=== PATIENT | female | born 1995 | race Caucasian/White ===

== ENCOUNTER 2020-06-12 14:17 | Emergency (ER) | payer OTHER, SELFPAY ==
--- NOTE | 2020-06-12 14:24 | PC.NURSE ---
Patient never seen by this nurse. Patient arrived at registration and spoke with provider. Patient left express care at that time.
== END 2020-06-12 14:27 | disposition left against medical advice (07) ==
PROVIDERS: Emergency Provider Nurse Practitioner; PCP Emergency Medicine
DX: Z53.21 Procedure and treatment not carried out due to patient leaving prior to being seen by health care provider (principal)
CPT/HCPCS: 99199

== ENCOUNTER 2020-06-12 14:50 | Emergency (ER) | payer OTHER, SELFPAY ==
[2020-06-12] VITALS (8 sets, daily range): BP systolic 110–125; BP diastolic 68–81; PULSE 66–109; RESP 12–22; TEMP 36.5–37; O2SAT 97–100
--- NOTE | 2020-06-12 14:57 | ECG_ITS ---
Measurements Intervals [place] Rate: 89 P: 47 SD: 135 QRS: 42 QRSD: 93 T: 57 QT: 339 QTc: 414 Interpretive Statements SINUS RHYTHM BASELINE ARTIFACT- I, III, AVR, AVL NORMAL ECG Electronically Signed On 06-12-2020 16:51:16 CDT by Yuriy Patricia D.O.
[2020-06-12 15:15] LABS: Basophils Absolute Auto 0.1 K/mm3 (0.0-0.1); Basophils Percent Auto 0.8 % (0.2-1.2); Eosinophils Absolute Auto 0.2 K/mm3 (0-0.3); Eosinophils Percent Auto 2.9 % (0-4.4); Hematocrit 41.4 % (37.0-47.0); Hemoglobin 13.8 g/dL (12.0-15.0); Immature Granulocyte Absolute 0.03 K/mm3 (0.00-0.031); Immature Granulocyte Percent A 0.4 % (0-0.5); Lymphocytes Absolute Auto 2.19 K/mm3 (0.9-3.2); Lymphocytes Percent Auto 27.8 % (18.3-44.2); Mean Corpuscular HGB Conc 33.3 g/dl (32-36); Mean Corpuscular Hemoglobin 31.7 pg (26-34); Mean Platelet Volume 9.8 fl (7.4-10.4); Monocytes Absolute Auto 0.5 K/mm3 (0.1-0.6); Monocytes Percent Auto 5.7 % (2.6-8.5); Neutrophils Absolute Auto 4.9 K/mm3 (1.3-6.7); Neutrophils Percent Auto 62.4 % (45.5-73.1); Platelet Count Result 329 k/mm3 (150-375); Red Blood Count 4.36 M/mm3 (4.2-5.4); Red Cell Distribution Width 12.4 % (11.5-14.5); White Blood Count 7.9 K/mm3 (4.5-10.0)
[2020-06-12 15:22] LABS: Add Urine Microscopic? YES; Appearance Urine Clear (Clear); Bacteria Urine Trace /hpf; Bilirubin Urine Negative (Negative); Blood Urine Negative (Negative); Color Urine Straw (Yellow); Glucose Urine UA Negative (Negative); Ketones Urine Negative (Negative); Leukocyte Esterase Ur 1+ LEU/UL (Negative); Mucus Urine Rare /lpf; Nitrate Urine Positive (Negative); Protein Urine Negative (Negative); Specific Grav Ur 1.009 (1.001-1.035); Squamous Epithelial Cell Urine Moderate /hpf (Few); Urobilinogen Urine Negative mg/dL (<2.0); WBC Urine 21-30 /hpf
[2020-06-12 15:27] LABS: Anion Gap 8 mmol/L (8-16); Blood Urea Nitrogen 9 mg/dL (7-17); Calcium 9.3 mg/dL (8.4-10.2); Carbon Dioxide 23 mmol/L (22-30); Chloride 104 mmol/L (98-107); Estimated CRCL calculation 105 ml/min; Estimated Glomerular Filt Rate > 60; Glucose 95 mg/dL (65-105); Potassium 4.3 mmol/L (3.4-5.0); Sodium 135 mmol/L (137-145)
--- NOTE | 2020-06-12 17:29 | ED.DIZZY ---
HPI - Dizziness General Chief Complaint: Dizziness Stated Complaint: dizziness Time Seen by Provider: 06/12/20 17:12 History of Present Illness HPI Narrative: She reports that she has had UTI symptoms, frequency and dysuria, for a few days. She tried OTC medications without relief. Over the past few days she has become increasingly dizzy. The dizziness is a vertigo like, although it happens most often with standing. Additionally she has had frequent headaches. No tinnitus, otalgia, sinus pressure. Related Data Home Medications Medication Instructions Recorded Confirmed diazepam 5 mg PO BID PRN 10/24/19 10/24/19 venlafaxine 150 mg PO DAILY 10/24/19 10/24/19 Allergies Allergy/AdvReac Type Severity Reaction Status Date / Time No Known Allergies Allergy Verified 06/12/20 18:18 Review of Systems Review of Systems: All systems reviewed & are unremarkable except as noted in HPI and below Constitutional: Constitutional: Denies fever(s) and Denies weakness Eyes: Eyes: Denies change in vision ENT: Reports vertigo and Denies sore throat Cardiovascular: Cardiovascular: Denies chest pain Respiratory: Respiratory: Denies dyspnea Gastrointestinal: Gastrointestinal: Denies nausea and Denies vomiting Genitourinary: Genitourinary: Denies hematuria, Reports nocturia, Reports dysuria and Denies flank pain Musculoskeletal: Musculoskeletal: Denies back pain Neurologic: Denies confusion, Reports dizziness, Reports headache(s) and Denies weakness Psychiatric: Psychiatric: Denies anxiety [facility] Social History Social History (Updated 06/20/20 @ 17:15 by Isak Mohan MD) Smoking status: Never smoker Exam Const: General: healthy appearing, no acute distress and alert Orientation/consciousness: patient oriented x3 HENMT: Head: normal to inspection Ears: TM's normal bilaterally Face and sinus: sinuses nontender Mouth: Yes moist mucous membranes Eyes: Pupils: Equal, round and reactive pupils present EOM: EOMs intact bilaterally Neck: Neck: normal visual inspection and no lymphadenopathy Chest: Chest palpation & inspection: no tenderness Resp: Effort & Inspection: normal respiratory effort Auscultation: clear to auscultation bilaterally, no rales, no rhonchi and no wheezes Cardio: Jugular venous distension: no JVD Rate: regular rate Rhythm: regular rhythm Heart sounds: no murmurs GI: Inspection: non-distended GI Palp: Yes Soft to palpation and No Tenderness to palpation present (GI) Skin: General skin exam: normal color Neuro: General: patient oriented x3, moves all extremities, no focal motor deficits and CN's II-XI intact bilaterally Cranial nerves: Yes Nystagmus present horizontal Speech: normal speech Extrem: General: no edema Psych: Appearance: well kempt Affect: normal affect Course Vital Signs Vital signs: Vital Signs Temperature 36.5 C 06/12/20 14:54 Pulse Rate 90 06/12/20 14:54 Respiratory Rate 20 06/12/20 14:54 Blood Pressure 122/81 06/12/20 14:54 Pulse Oximetry 100 06/12/20 14:54 Temperature 36.7 C 06/12/20 20:17 Pulse Rate 93 06/12/20 22:15 Respiratory Rate 22 H 06/12/20 22:15 Blood Pressure 111/71 06/12/20 22:15 Pulse Oximetry 99 06/12/20 22:15 MDM - Dizziness Differential Diagnosis Differential diagnosis: Likely benign paroxysmal positional vertigo and other (Near syncope, UTI, dehydration, migraine) Medical Records Attestation: I reviewed the patient's medical records. Lab Data Attestation: I reviewed the patient's lab results. Result diagrams: 06/12/20 15:04 06/12/20 15:04 Labs: Lab Results 06/12/20 06/12/20 06/12/20 Range/Units 15:04 15:04 15:04 WBC 7.9 (4.5-10.0) K/mm3 RBC 4.36 (4.2-5.4) M/mm3 Hgb 13.8 (12.0-15.0) g/dL Hct 41.4 (37.0-47.0) % MCV 95.0 (80-100) fl MCH 31.7 (26-34) pg MCHC 33.3 (32-36) g/dl RDW 12.4 (11.5-14.5) % Plt Count 329 (1
[2020-06-12] MEDS: NITROFURANTOIN MONOHYD MACROCR 100 MG CAP PO (17:44)
[2020-06-12] MEDS: MECLIZINE HCL 25 MG TABLET PO (17:45)
--- NOTE | 2020-06-12 18:50 | PC.NURSE ---
Patient provided ice water for PO fluid challenge. Patient tolerated well.
--- NOTE | 2020-06-12 21:15 | PC.NURSE ---
Report given to MARY Santos
== END 2020-06-12 22:24 | disposition home or self-care (01) ==
PROVIDERS: Emergency Provider Emergency Medicine; PCP Emergency Medicine
DX: N39.0 Urinary tract infection, site not specified (principal); R42 Dizziness and giddiness
CPT/HCPCS: 36415; 80048; 81001; 81025; 85025; 87077; 87086; 87088; 87186; 93005; 99284; A9270

== ENCOUNTER 2021-08-26 15:50 | Emergency (ER) | payer OTHER, SELFPAY ==
[2021-08-26 15:51] VITALS: BP 121/69; PULSE 119; RESP 18; TEMP 36.4; O2SAT 100
[2021-08-26] MEDS: HYDROcodone/acetaminophen (*CRX) 5-325 MG TABLET 1 TAB PO (17:18)
--- NOTE | 2021-08-26 18:57 | ED.GENADULT ---
HPI - General Adult General Chief complaint: Wound/Laceration Stated complaint: lac to left hand Time Seen by Provider: 08/26/21 16:11 Source: patient Mode of arrival: ambulatory Limitations: no limitations History of Present Illness HPI narrative: Patient is a 26-year-old female with chief complaint of laceration between the webbing of the first and second digit of her right hand that she sustained while using a knife to open a package. Patient reports that she is not sure as she is up-to-date on her tetanus. She reports pain with range of motion of her thumb but denies loss of range of motion. Patient denies any other injuries. Related Data Home Medications Medication Instructions Recorded Confirmed diazepam 5 mg PO BID PRN 10/24/19 10/24/19 venlafaxine 150 mg PO DAILY 10/24/19 10/24/19 Allergies Allergy/AdvReac Type Severity Reaction Status Date / Time No Known Allergies Allergy Verified 08/26/21 17:28 Review of Systems Review of Systems: CONSTITUTIONAL: Denies fever, chills, or sweats. EYES: Denies visual changes, redness, or discharge. ENT: Denies rhinorrhea, congestion, sore throat, or otalgia. CARDIOVASCULAR: Denies chest pain, palpitations, or edema. RESPIRATORY: Denies cough or dyspnea. GASTROINTESTINAL: Denies abdominal pain, nausea, vomiting, or diarrhea. GENITOURINARY: Denies dysuria or hematuria. SKIN: Reports laceration denies rash or itching. MUSCULOSKELETAL: Denies back pain, joint pain, or myalgia. NEUROLOGIC: Denies headache, numbness, dizziness, or weakness. PSYCHIATRIC: Denies anxiety or depression. [facility] Social History Social History (Updated 06/20/20 @ 17:15 by Isak Mohan MD) Smoking status: Never smoker Exam Narrative: GENERAL: Well-appearing, well-nourished, and in no acute distress. HEAD: Normocephalic, atraumatic. EYES: PERRLA and EOMI. CHEST: No tachypnea no respiratory distress. No wheezes rales or rhonchi EXTREMITIES: Normal range of motion. SKIN: 1 cm laceration noted to the webbing of the space between the first and second digit of the patient's right hand. No active bleeding. Warm, dry, no rash. NEURO: No focal deficits. Alert and oriented x3. PSYCH: Normal mood and affect. Course Vital Signs Vital signs: Vital Signs Temperature 97.6 F 08/26/21 15:51 Pulse Rate 119 H 08/26/21 15:51 Respiratory Rate 18 08/26/21 15:51 Blood Pressure 121/69 08/26/21 15:51 Pulse Oximetry 100 08/26/21 15:51 Temperature 97.6 F 08/26/21 15:51 Pulse Rate 119 H 08/26/21 15:51 Respiratory Rate 18 08/26/21 15:51 Blood Pressure 121/69 08/26/21 15:51 Pulse Oximetry 100 08/26/21 15:51 Procedures Laceration Laceration 1: Site: hand Side (If applicable): right Size (cm): 1 Description: linear Depth: simple, single layer Local Anesthetic: lidocaine 1% Amount of anesthesia used (mL): 0.5 ====== Skin Level ====== Skin layer closed with: nylon Size (cm): 4-0 Number of sutures: 2 Technique: simple, interrupted ====== Subcutaneous Layer ====== ====== Muscle Layer ====== ====== Tendon Layer ====== Dressing: Patient tolerated procedure well. Wound care instructions given. Dressing applied. Patient denies any other questions Medical Decision Making MDM Narrative Medical decision making narrative: Wound repair. Patient given tetanus booster and she is unsure if she is had tetanus booster in the last 5 years. Patient able wound care instructions. Patient instructed to follow-up in approximately 10 days for suture removal. Patient instructed to avoid excessive movement of the area to allow for healing. Patient instructed to wash area with antibacterial soap and apply antibacterial ointment and follow-up sooner if any signs of infection present. 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 Vital Signs Vital Signs: Vital Signs
[2021-08-26 19:05] VITALS: BP 118/64; PULSE 76; RESP 20; O2SAT 98
[2021-08-26] MEDS: TETANUS,DIPHTHERIA,AC PERTUSSIS ADULT (0.5 ML) BOOSTRIX IM (19:33)
== END 2021-08-26 19:36 | disposition home or self-care (01) ==
PROVIDERS: Emergency Provider Emergency Medicine; PCP Emergency Medicine
DX: S61.411A Laceration without foreign body of right hand, initial encounter (principal); Z23 Encounter for immunization; W26.0XXA Contact with knife, initial encounter
CPT/HCPCS: 12001; 90471; 90715; 99283; A9270

== ENCOUNTER 2021-10-01 19:26 | Emergency (ER) | payer OTHER, SELFPAY ==
[2021-10-01 19:34] VITALS: BP 122/75; PULSE 108; RESP 16; TEMP 37.3; O2SAT 100
--- NOTE | 2021-10-01 19:41 | ED.URI ---
HPI - URI/Sore Throat General Chief Complaint: Upper Respiratory Infection Stated Complaint: POS UTI/kamara/nose pain History of Present Illness HPI Narrative: The vaccinated patient, a smoker/nondrinker, presents with several complaints. Patient states she has a 2-day history of urinary urgency and dysuria. Patient states she has had symptoms as early as 2 weeks ago, but felt improved with cranberry juice but has now since returned. No fever, hematuria, vaginal discharge- but she wants testing for STIs. She also mentions in the last 2 weeks she has had sinus headache with nasal congestion, and has pet/triggers at home[3 dogs]. No fever, sore throat, earache; no loss of taste/smell, wheezing, chest pain, S OB, vomiting/diarrhea-she has also had Covid illness in the last year. Related Data Home Medications Medication Instructions Recorded Confirmed venlafaxine 75 mg PO DAILY 10/01/21 10/01/21 Allergies Allergy/AdvReac Type Severity Reaction Status Date / Time No Known Allergies Allergy Verified 08/26/21 17:28 Review of Systems Review of Systems: General/Constitutional: No weight loss,fever Eyes: N0: Redness,discharge Ears/Nose/Throat: No: Epistaxis,ear discharge Respiratory: Denies: Hemoptysis Gastrointestinal: No Vomiting, Bleeding-rectal Skin: No Lumps, eruption Neurologic: No Focal Weakness,Sz Hematologic: Denies: Petechiae/Purpura Psychiatric: No: Suicida ideationl All Other Systems: Reviewed and Negative REPLACED BY [facility] Social History Social History (Updated 06/20/20 @ 17:15 by Isak Mohan MD) Smoking status: Never smoker Comments At time of signature, agree with nursing past medical, surgical, social and family history. There is no relevant family history pertinent to the presenting complaint Exam Narrative: General Appearance: Well appearing, No distress EYE: PERRLA, Conjunctiva clear Ears: External ear normal Nose: Normal nose Mouth/Throat: Normal appearing, Normal lips Neck: Supple Respiratory: Airway patent, No respiratory distress Cardiovascular: RRR Abdomen: Soft, Non-tender, No massess, Musculoskeletal: Full ROM Skin: Warm, Dry Neurological: A&O x3, CN II-X intact Psychiatric: Normal mood, Normal affect Course Vital Signs Vital signs: Vital Signs Temperature 99.1 F 10/01/21 19:34 Pulse Rate 108 H 10/01/21 19:34 Respiratory Rate 16 10/01/21 19:34 Blood Pressure 122/75 10/01/21 19:34 Pulse Oximetry 100 10/01/21 19:34 Temperature 99.1 F 10/01/21 19:34 Pulse Rate 108 H 10/01/21 19:34 Respiratory Rate 16 10/01/21 19:34 Blood Pressure 122/75 10/01/21 19:34 Pulse Oximetry 100 10/01/21 19:34 MDM - URI/Sore Throat Lab Data Labs: Lab Results 10/01/21 Range/Units 19:50 C.trachomatis RNA (TMA) Pending N.gonorrhoeae RNA (TMA) Pending T. vaginalis Amp RNA Pending Urine Glucose Negative Reference Range: Negative Urine Bilirubin Negative Reference Range: Negative Urine Ketone Negative Reference Range: Negative Urine Specific [place] 1.020 Reference Range:1.001-1.035 Urine Blood Negative Reference Range: Negative * * Urine pH 8.5 Reference Range: 5.0-9.0 Urine Protein Negative Reference Range: Negative Urine Urobilinogen 0.2 Reference Range: 0.2-1.0 Urine Nitrate Negative Reference Ra
[2021-10-04 20:11] LABS: SARS-CoV-2 RNA PCR Negative
== END 2021-10-01 20:01 | disposition home or self-care (01) ==
PROVIDERS: Emergency Provider Emergency Medicine; PCP Emergency Medicine
DX: R30.0 Dysuria (principal); R51.9 Headache, unspecified; Z20.822 Contact with and (suspected) exposure to COVID-19; F41.9 Anxiety disorder, unspecified; F32.9 Major depressive disorder, single episode, unspecified
CPT/HCPCS: 81003; 87491; 87591; 87661; 99214; C9803; G0463; U0003; U0005

== ENCOUNTER 2021-12-06 13:59 | Emergency (ER) | payer OTHER, SELFPAY ==
[2021-12-06 14:04] VITALS: BP 108/71; PULSE 98; RESP 16; TEMP 37.1; O2SAT 100
--- NOTE | 2021-12-06 14:07 | ED.GENADULT ---
HPI - General Adult General Chief complaint: Shortness of Breath/Dyspnea Stated complaint: Shortness of breath. Time Seen by Provider: 12/06/21 14:08 Source: patient Mode of arrival: ambulatory Limitations: no limitations History of Present Illness HPI narrative: 26 yo F presents with c/o difficulty breathing for awhile . reports off and on congestion, runny nose, dry cough. recently checked her basement and vents and saw black mold growing . Told her PCP about black mold but he dismissed me and then cancelled me as a pt. Recently saw a business services sales agent and is being evaluated for possible valve issue . has appt with templer head in 2 wks. Thinks she need inhalers and oxygen therapy. pt is speaking in full sentences. flight on ideas. no resp distress. All systems reviewed and negative except as noted above. Related Data Allergies Allergy/AdvReac Type Severity Reaction Status Date / Time No Known Allergies Allergy Verified 12/06/21 14:08 Review of Systems Review of Systems: CONSTITUTIONAL: Denies fever, chills, or sweats. EYES: Denies visual changes, redness, or discharge. ENT: Denies rhinorrhea, congestion, sore throat, or otalgia. CARDIOVASCULAR: Denies chest pain, palpitations, or edema. RESPIRATORY: Reports cough or dyspnea. GASTROINTESTINAL: Denies abdominal pain, nausea, vomiting, or diarrhea. GENITOURINARY: Denies dysuria or hematuria. SKIN: Denies rash or itching. MUSCULOSKELETAL: Denies back pain, joint pain, or myalgia. NEUROLOGIC: Denies headache, numbness, or weakness. PSYCHIATRIC: Denies anxiety or depression. All other systems reviewed are negative, except as documented in HPI. [facility] Social History Social History (Updated 06/20/20 @ 17:15 by Isak Mohan MD) Smoking status: Never smoker Comments At time of signature, agree with nursing past medical, surgical, social and family history. There is no relevant family history pertinent to the presenting complaint. Exam Narrative: GENERAL: This is a well-nourished, well-developed patient, in no apparent distress. HEAD: normocephalic, atraumatic. EYES: PERRL. Sclera clear/white. Vision is grossly intact. EARS: External ears normal, auditory canals clear and without drainage, TMs normal without perforation. Hearing grossly intact. NOSE: External nose normal with no obvious nasal discharge, nares without redness, no rhinorrhea. THROAT: Mucous membranes moist, posterior pharynx clear. NECK: Neck supple, non-tender without lymphadenopathy, masses or thyromegaly. CARDIOVASCULAR: Regular rate and rhythm without murmurs, gallops, or rubs. RESPIRATORY: Clear to auscultation. Breath sounds equal bilaterally. No wheezes, rales, or rhonchi. GASTROINTESTINAL: Abdomen soft, non-tender, nondistended. Bowel sounds are active. No hepato-splenomegaly, or palpable masses. No guarding. SKIN: warm, Dry, intact with no suspicious lesions or rash, good texture and turgor. NEURO: awake, alert, and oriented to person, place and time. There were no obvious focal neurologic abnormalities. EXTREMITIES: No joint tenderness, effusion, or edema noted. No calf tenderness. Negative Homans sign bilaterally. BACK: Nontender without deformity. No CVA tenderness. Course Course Level of Care: Express Care Visit Vital Signs Vital signs: Vital Signs Temperature 37.1 C 12/06/21 14:04 Pulse Rate 98 12/06/21 14:04 Respiratory Rate 16 12/06/21 14:04 Blood Pressure 108/71 12/06/21 14:04 Pulse Oximetry 100 12/06/21 14:04 Temperature 37.1 C 12/06/21 14:08 Pulse Rate 98 12/06/21 14:08 Respiratory Rate 16 12/06/21 14:08 Blood Pressure 108/71 12/06/21 14:08 Pulse Oximetry 100 12/06/21 14:08 Reviewed Medical Decision Making MDM Narrative Medical decision making narrative: will rx albuterol, antihistamines. pt has pulmonology appt in 2 wks. currently her lung sounds are clear. recommend she follow up with a PCP also. Patient is aware of diagnosis, understan
[2021-12-06 14:08] VITALS: BP 108/71; PULSE 98; RESP 16; TEMP 37.1; O2SAT 100
== END 2021-12-06 14:29 | disposition home or self-care (01) ==
PROVIDERS: Emergency Provider Nurse Practitioner Family; PCP Emergency Medicine
DX: R06.00 Dyspnea, unspecified (principal); Z86.16 Personal history of COVID-19
CPT/HCPCS: 99213; G0463

== ENCOUNTER 2022-03-30 11:02 | Emergency (ER) | payer OTHER, SELFPAY ==
[2022-03-30 11:15] VITALS: BP 117/65; PULSE 90; RESP 16; TEMP 36.3; O2SAT 100
--- NOTE | 2022-03-30 11:53 | ED.EAR ---
HPI - Ear Problem General Chief complaint: Ear Stated complaint: EARACHE/DRAINAGE Time Seen by Provider: 03/30/22 11:44 Source: patient Mode of arrival: ambulatory Limitations: no limitations History of Present Illness HPI Narrative: Patient presents today complaining of left ear pain x1 week. Reports drainage of green pus since last night with increased pain. She currently rates pain 8/10 and has been taking ibuprofen without relief. States she cannot hear anything out of the left ear. Denies any additional symptoms to include congestion, rhinorrhea, cough, sore throat. Related Data Home Medications Medication Instructions Recorded Confirmed diazepam 5 mg tablet tablet 03/30/22 lamotrigine 25 mg tablet tablet 03/30/22 Allergies Allergy/AdvReac Type Severity Reaction Status Date / Time No Known Allergies Allergy Verified 12/06/21 14:08 Review of Systems Review of Systems: CONSTITUTIONAL: Denies body aches, fever, chills, or sweats. EYES: Denies visual changes, redness, or discharge. ENT: Denies rhinorrhea, congestion, sore throat. + Left ear pain and drainage. CARDIOVASCULAR: Denies chest pain, palpitations, or edema. RESPIRATORY: Denies cough or dyspnea. GASTROINTESTINAL: Denies abdominal pain, nausea, vomiting, or diarrhea. GENITOURINARY: Denies dysuria or hematuria. SKIN: Denies rash, itching, or wounds. MUSCULOSKELETAL: Denies back pain, joint pain, or myalgia. NEUROLOGIC: Denies headache, numbness, tingling, or weakness. PSYCH: Denies depression or anxiety. [facility] Social History Social History Smoking status: Never smoker Comments At time of signature, I have reviewed and agree with nursing past medical, surgical, social and family history unless otherwise noted. Please see nursing chart for further information. There is no relevant family history pertinent to the presenting complaint Exam Narrative: GENERAL: Well-appearing, well-nourished, and in no acute distress. HEAD: Normocephalic, atraumatic. EYES: EOMI. No redness or drainage. Conjunctivae normal. ENT: Mucous membranes pink and moist. Nares clear. No rhinorrhea. + Right TM normal. Left TM severely erythematous. Possible small rupture. Purulent green discharge in the ear canal. Movement tenderness on left. NECK: Normal AROM. Supple. No lymphadenopathy. CHEST: No respiratory distress. EXTREMITIES: Normal range of motion. No edema. SKIN: Warm, dry, no rash. Capillary refill normal. Normal skin turgor. NEURO: No focal deficits. Alert and oriented x3. Gait steady. PSYCH: Normal affect. No signs of depression or anxiety. Course Course Level of Care: Express Care Visit Vital Signs Vital signs: Vital Signs Temperature 97.4 F L 03/30/22 11:15 Pulse Rate 90 03/30/22 11:15 Respiratory Rate 16 03/30/22 11:15 Blood Pressure 117/65 03/30/22 11:15 Pulse Oximetry 100 03/30/22 11:15 Temperature 97.4 F L 03/30/22 11:15 Pulse Rate 90 03/30/22 11:15 Respiratory Rate 16 03/30/22 11:15 Blood Pressure 117/65 03/30/22 11:15 Pulse Oximetry 100 03/30/22 11:15 Reviewed Medical Decision Making Differential Diagnosis Differential Diagnosis: Otitis media, otitis externa, ruptured TM, serous otitis, eustachian tube dysfunction, cerumen impaction Vital Signs Vital Signs: Vital Signs Temperature 97.4 F L 03/30/22 11:15 Pulse Rate 90 03/30/22 11:15 Respiratory Rate 16 03/30/22 11:15 Blood Pressure 117/65 03/30/22 11:15 Pulse Oximetry 100 03/30/22 11:15 Temperature 97.4 F L 03/30/22 11:15 Pulse Rate 90 03/30/22 11:15 Respiratory Rate 16 03/30/22 11:15 Blood Pressure 117/65 03/30/22 11:15 Pulse Oximetry 100 03/30/22 11:15 Critical Care Time Critical Care Time Critical Care Time: No Discharge Plan Discharge Clinical Impression: Acute suppurative otitis media of left ear with spontaneous rupture of e
== END 2022-03-30 12:19 | disposition home or self-care (01) ==
PROVIDERS: Emergency Provider Nurse Practitioner; PCP Emergency Medicine
DX: H66.012 Acute suppurative otitis media with spontaneous rupture of ear drum, left ear (principal); Z86.16 Personal history of COVID-19
CPT/HCPCS: 99213; G0463

== ENCOUNTER 2022-05-26 16:01 | Emergency (ER) | payer OTHER, SELFPAY ==
[2022-05-26 16:05] VITALS: BP 107/57; PULSE 71; RESP 16; TEMP 36.9; O2SAT 100
[2022-05-26 16:10] VITALS: BP 107/57; PULSE 71; RESP 16; TEMP 36.9; O2SAT 100
--- NOTE | 2022-05-26 16:16 | ED.EAR ---
HPI - Ear Problem General Chief complaint: Ear Stated complaint: Left Ear Pain Time Seen by Provider: 05/26/22 16:17 Source: patient Mode of arrival: ambulatory Limitations: no limitations History of Present Illness HPI Narrative: 27-year-old female presented for complaint of left ear pain for 4 days. Endorses cleaning the ear with hydrogen peroxide and noted black stuff came from the ear as well as yellow/green pus. Also reports fever at home, endorses migraine and tinnitus. She denies dizziness, nausea, vomiting. Patient was treated for otitis media with ruptured TM in March, states symptoms had resolved after treatment. MD Complaint: ear pain Related Data Home Medications Medication Instructions Recorded Confirmed diazepam 5 mg tablet 5 mg PO DAILY 03/30/22 05/26/22 lamotrigine 25 mg tablet 25 mg PO DAILY 03/30/22 05/26/22 Allergies Allergy/AdvReac Type Severity Reaction Status Date / Time No Known Allergies Allergy Verified 12/06/21 14:08 Review of Systems Review of Systems: CONSTITUTIONAL: Denies malaise, chills, or fever. EYES: Denies visual changes, redness, or discharge. ENT: Denies rhinorrhea, congestion, sinus pain, and sore throat. Reports ear pain CARDIOVASCULAR: Denies chest pain, palpitations, or edema. RESPIRATORY: Denies cough or dyspnea. GASTROINTESTINAL: Denies abdominal pain, nausea, vomiting, diarrhea SKIN: Denies rash or itching. MUSCULOSKELETAL: Denies myalgia. NEUROLOGIC: Denies headache. All systems reviewed & are unremarkable except as noted in HPI and below [facility] Social History Social History Smoking status: Never smoker Comments At time of signature, agree with nursing past medical, surgical, social and family history. There is no relevant family history pertinent to the presenting complaint Exam Narrative: GENERAL: Well-appearing HEAD: Normocephalic EYES: conjunctivae clear ENT: Nares clear. Mucous membranes moist. Left ear with purulent green discharge in canal, canal erythematous with mild swelling; TM erythematous possible small rupture obscured by the discharge.?Right TM pearly guerra with dull light reflex; no tragal tenderness. Oropharynx not erythematous without lesions. CHEST: Clear to auscultation, breath sounds equal. HEART: Regular rate and rhythm. No murmur heard. SKIN: Warm, dry, no rash. NEURO: Alert and oriented x3. PSYCH: Normal mood and affect Course Course Emergency Course: Patient is aware of diagnosis, understands and agrees to treatment plan. Anticipatory guidance given. Patient agrees to follow-up as directed and is aware of reasons to seek care at the emergency department. Portions of this record may have been created with voice recognition software Level of Care: Express Care Visit Vital Signs Vital signs: Vital Signs Temperature 98.5 F 05/26/22 16:05 Pulse Rate 71 05/26/22 16:05 Respiratory Rate 16 05/26/22 16:05 Blood Pressure 107/57 L 05/26/22 16:05 Pulse Oximetry 100 05/26/22 16:05 Oxygen Delivery Room Air 05/26/22 16:05 Temperature 98.5 F 05/26/22 16:10 Pulse Rate 71 05/26/22 16:10 Respiratory Rate 16 05/26/22 16:10 Blood Pressure 107/57 L 05/26/22 16:10 Pulse Oximetry 100 05/26/22 16:10 Oxygen Delivery Room Air 05/26/22 16:10 Reviewed Medical Decision Making MDM Narrative Medical decision making narrative: Treat for otitis externa, and AOM, Advised supportive measures, and signs/symptoms to go to the ER. Recommend possible ENT evaluation. Pt is appropriate for outpt treatment and f/u. Differential Diagnosis Differential Diagnosis: Coronavirus, strep pharyngitis, allergic rhinitis, upper respiratory tract infection, sinusitis, rhinosinusitis, nasopharyngitis, viral pharyngitis, otitis media, otitis externa, eustachian tube dysfunction, foreign body, cerumen impaction. Vital Signs Vital Signs: Vital Signs Temperature 98.5 F
== END 2022-05-26 16:30 | disposition home or self-care (01) ==
PROVIDERS: Emergency Provider Nurse Practitioner Family; PCP Emergency Medicine
DX: H60.92 Unspecified otitis externa, left ear (principal); H66.015 Acute suppurative otitis media with spontaneous rupture of ear drum, recurrent, left ear; F41.9 Anxiety disorder, unspecified; F32.A Depression, unspecified; Z86.16 Personal history of COVID-19
CPT/HCPCS: 99213; G0463

== ENCOUNTER 2023-05-09 11:51 | Emergency (ER) | payer OTHER, SELFPAY ==
[2023-05-09 12:12] VITALS: BP 115/76; PULSE 73; RESP 16; TEMP 36.6; O2SAT 99
--- NOTE | 2023-05-09 12:21 | ED.LOWEXIN ---
HPI - Extremity Injury (Lower) General Chief Complaint: Extremity Injury, Lower Stated Complaint: Left toenail injury Source: patient and RN notes reviewed Mode of arrival: ambulatory Limitations: no limitations History of Present Illness HPI Narrative: Patient is a 28 of year old female who presents to the [facility] with complaints of injury to her left 2nd toe. Patient states that [place] She presents with bruising around the toenail of the left 2nd toe. Toenail is intact. 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 She has full range of motion of her left 2nd toe. Cap refill is normal and sensation is intact. Related Data Home Medications Medication Instructions Recorded Confirmed diazepam 5 mg tablet 5 mg PO DAILY 03/30/22 02/06/23 cariprazine 1.5 mg capsule 1.5 mg PO DAILY 07/20/22 02/06/23 (Vraylar) sertraline 50 mg tablet (Zoloft) 50 mg PO DAILY 02/08/23 Allergies Allergy/AdvReac Type Severity Reaction Status Date / Time No Known Allergies Allergy Verified 02/06/23 09:09 Review of Systems Review of Systems: CONSTITUTIONAL: Denies fever, chills, or sweats. EYES: Denies visual changes, redness, or discharge. ENT: Denies otalgia and sore throat CARDIOVASCULAR: Denies chest pain, palpitations, or edema. RESPIRATORY: Denies cough or dyspnea. GASTROINTESTINAL: Denies abdominal pain, nausea, vomiting, or diarrhea. GENITOURINARY: Denies dysuria or hematuria. SKIN: Denies rash or itching. Bruising to distal phalanx of left second toe. MUSCULOSKELETAL: Denies back pain, joint pain, or myalgia. Reports left second toe pain. NEUROLOGIC: Denies headache, numbness, or weakness. Pertinent positives per HPI. 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 There is no relevant family history pertinent to the patient complaint. Exam Narrative: GENERAL: This is a well-nourished, well-developed patient, in no apparent distress. HEAD: normocephalic, atraumatic. EYES: PERRL. Sclera clear/white. Vision is grossly intact. EARS: External ears normal, auditory canals clear and without drainage, TMs normal without perforation. Hearing grossly intact. NOSE: External nose normal with no obvious nasal discharge, nares without redness, no rhinorrhea. THROAT: Mucous membranes moist, posterior pharynx clear. NECK: Neck supple, non-tender without lymphadenopathy, masses or thyromegaly. CARDIOVASCULAR: Regular rate and rhythm without murmurs, gallops, or rubs. RESPIRATORY: Clear to auscultation. Breath sounds equal bilaterally. No wheezes, rales, or rhonchi. GASTROINTESTINAL: Abdomen soft, non-tender, nondistended. Bowel sounds are active. No hepato-splenomegaly, or palpable masses. No guarding. SKIN: warm, intact with no suspicious lesions or rash, good texture and turgor. Slight bruising to distal phalanx of left second toe. NEURO: awake, alert, and oriented to person, place and time. There were no obvious focal neurologic abnormalities. EXTREMITIES: No clubbing, cyanosis, or edema. No effusion or edema noted. Left 2nd toe tenderness with mild bruising. full range of motion of the left 2nd t
== END 2023-05-09 12:23 | disposition home or self-care (01) ==
PROVIDERS: Emergency Provider Nurse Practitioner
DX: S99.922A Unspecified injury of left foot, initial encounter (principal); X58.XXXA Exposure to other specified factors, initial encounter; F17.210 Nicotine dependence, cigarettes, uncomplicated; F17.290 Nicotine dependence, other tobacco product, uncomplicated
CPT/HCPCS: 99212; G0463

== ENCOUNTER 2024-06-21 17:50 | Emergency (ER) | payer SELFPAY ==
[2024-06-21 17:56] VITALS: BP 119/66; PULSE 96; RESP 18; TEMP 36.8; O2SAT 100
--- NOTE | 2024-06-21 18:02 | ED.EAR ---
HPI - Ear Problem General Chief complaint: Ear Stated complaint: Ear Pain Time Seen by Provider: 06/21/24 18:03 Source: patient Mode of arrival: ambulatory Limitations: no limitations History of Present Illness HPI Narrative: 29 y/o female presented for c/o bilateral ear pain for 3-4 days with ear drainage and muffled hearing. Denies tinnitus, dizziness, nasal congestion, fever. MD Complaint: ear pain Related Data Home Medications Medication Instructions Recorded Confirmed diazepam 5 mg tablet 5 mg PO DAILY 03/30/22 05/19/23 cariprazine 1.5 mg capsule 1.5 mg PO DAILY 07/20/22 05/19/23 (Vraylar) sertraline 50 mg tablet (Zoloft) 50 mg PO DAILY 02/08/23 05/19/23 Allergies Allergy/AdvReac Type Severity Reaction Status Date / Time No Known Allergies Allergy Verified 05/19/23 09:54 Review of Systems Review of Systems: CONSTITUTIONAL: Denies malaise, chills, or fever. EYES: Denies visual changes, redness, or discharge. ENT: Denies rhinorrhea, congestion, sinus pain, and sore throat. Reports ear pain CARDIOVASCULAR: Denies chest pain, palpitations, or edema. RESPIRATORY: Denies cough or dyspnea. GASTROINTESTINAL: Denies abdominal pain, nausea, vomiting, diarrhea SKIN: Denies rash or itching. MUSCULOSKELETAL: Denies myalgia. NEUROLOGIC: Denies headache. 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 There is no relevant family history pertinent to the presenting complaint Exam Narrative: GENERAL: Well-appearing EYES: PERRLA, conjunctivae clear ENT: Nares clear. Mucous membranes moist. Bilateral ear canals erythematous, swollen, and tender with purulent drainage c/w OE, bilateral tragal tenderness. TMs unable to visualize due to swelling and drainage bilaterally. Oropharynx not erythematous without lesions. NECK: Supple. No lymphadenopathy CHEST: Clear to auscultation, breath sounds equal. No wheezing, rhonchi, rales, or stridor. No respiratory distress, speaks in full sentences. HEART: Regular rate and rhythm. No murmur heard. SKIN: Warm, dry, no rash. NEURO: Alert and oriented x3. Course Course Emergency Course: Patient is aware of diagnosis, understands and agrees to treatment plan. Anticipatory guidance given. Patient agrees to follow-up as directed and is aware of reasons to seek care at the emergency department. Portions of this record may have been created with voice recognition software Level of Care: Express Care Visit Vital Signs Vital signs: Vital Signs Temperature 98.3 F 06/21/24 17:56 Pulse Rate 96 06/21/24 17:56 Respiratory Rate 18 06/21/24 17:56 Blood Pressure 119/66 06/21/24 17:56 Pulse Oximetry 100 06/21/24 17:56 Oxygen Delivery Room Air 06/21/24 17:56 Temperature 98.3 F 06/21/24 17:56 Pulse Rate 96 06/21/24 17:56 Respiratory Rate 18 06/21/24 17:56 Blood Pressure 119/66 06/21/24 17:56 Pulse Oximetry 100 06/21/24 17:56 Oxygen Delivery Room Air 06/21/24 17:56 Reviewed Medical Decision Making MDM Narrative Medical decision making narrative: Discussed physical exam findings consistent with bilateral otitis externaAdvised supportive measures and signs/s
== END 2024-06-21 18:20 | disposition home or self-care (01) ==
PROVIDERS: Emergency Provider Nurse Practitioner Family
DX: H60.93 Unspecified otitis externa, bilateral (principal); F17.210 Nicotine dependence, cigarettes, uncomplicated; F17.290 Nicotine dependence, other tobacco product, uncomplicated
CPT/HCPCS: 99213; G0463

== ENCOUNTER 2024-08-29 16:17 | Emergency (ER) | payer SELFPAY ==
[2024-08-29 16:54] VITALS: BP 110/63; PULSE 69; RESP 20; TEMP 36.8; O2SAT 100
[2024-08-29 17:16] LABS: EDCOVIDSCREEN Negative (Negative); EDINFLUASCREEN Negative (Negative); EDINFLUBSCREEN Negative (Negative)
--- NOTE | 2024-08-29 17:29 | ED.URI ---
HPI - URI/Sore Throat General Chief Complaint: Upper Respiratory Infection Stated Complaint: Shortness of Breath/Headache/Runny Nose Time Seen by Provider: 08/29/24 17:30 Source: patient, RN notes reviewed and old records reviewed Mode of arrival: ambulatory Limitations: no limitations History of Present Illness HPI Narrative: 29-year-old female to Express Care with complaint of cough, nasal drainage, bilateral itching in ears for 24 hours. Patient denies fever, allergies, pertinent medical history. Patient has not attempted to treat symptoms at home. Patient able tolerate fluids by mouth. Patient resting comfortably in exam room in no acute distress. Respirations even and nonlabored. Related Data Home Medications Medication Instructions Recorded Confirmed diazepam 5 mg tablet 5 mg PO DAILY 03/30/22 05/19/23 cariprazine 1.5 mg capsule 1.5 mg PO DAILY 07/20/22 05/19/23 (Vraylar) sertraline 50 mg tablet (Zoloft) 50 mg PO DAILY 02/08/23 05/19/23 Allergies Allergy/AdvReac Type Severity Reaction Status Date / Time No Known Allergies Allergy Verified 05/19/23 09:54 Review of Systems Review of Systems: All systems reviewed & are unremarkable except as noted in HPI and below Constitutional: Constitutional: Reports no additional constitutional complaints Eyes: Eyes: Reports no additional eye complaints ENT: Reports as per HPI, Reports nasal discharge and Reports other ( Bilateral itching in the ears) Cardiovascular: Cardiovascular: Reports no additional cardiovascular complaints, Denies chest pain and Denies dyspnea Respiratory: Respiratory: Reports no additional respiratory complaints, Reports cough and Denies dyspnea Musculoskeletal: Musculoskeletal: Reports no additional musculoskeletal complaints Neurologic: Reports system reviewed and no additional complaints, except as documented Psychiatric: Psychiatric: Reports no additional psychiatric complaints [facility] Family History Family History Mother Alcoholism Depression Grandparent Cancer Other Cancer Other Cancer Father Hypertension Depression Sibling Depression Sibling Depression Social History Social History Years smoked: 10 Smoking status: Current every day smoker Tobacco type: cigarettes and e-cigarettes/vaping Alcohol intake: current Substance use: never Occupation/Education: occupation 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 There is no relevant family history pertinent to the patient complaint. Exam Const: General: cooperative, healthy appearing, comfortable, no acute distress, alert and well nourished Nutritional Appearance: well nourished Orientation/consciousness: patient oriented x3 Limitations: no limitations HENMT: Head: normal to inspection Ears: external ears normal and TM abnormal erythematous on the right and with fluid behind the TM on the right ( purulent) Face/Nose/Sinus: Normal external nose present, Normal nares present, normal facial exam, No erythema and No edema Face and sinus: normal facial exam, no erythema and no edema Mouth: Yes Normal oral and palatal mucosa present Throat: postnasal drainage Eyes: General: appearance normal, both eyes and all related structures Neck: Neck: normal visual inspection, full ROM and no meningeal signs Lymphatic: no lymphadenopathy noted and no lymphedema noted Chest: Chest palpation & inspection: normal inspection of the chest Resp: Effort & Inspection: normal respiratory effort and able to speak in complete sentences Auscultation: clear to auscultation bilaterally Cardio: Jugular venous distension: no JVD Rate: regular rate Rhythm: regular rhythm Back/Spine/Pelvis: Cervical Spine: cervical ROM normal Skin: General skin exam: normal color, no rashes or lesions noted and turgor normal Neuro: General: patient oriented x3, gait normal, moves all extremities and no meningeal signs Speech: normal speech Gait exam (Neuro): Normal gait present Extrem: General: normal to inspection, full ROM and capillary refill normal Psych: Appearance: grossly normal and well kempt Course Course Emergency Course: Some parts of this dictation were generated by voice recognition software and may contain typographical and/or grammatical inaccuracies. Level of Care: Express Care Visit Vital Signs Vital signs: Vital Signs Temperature 36.8 C 08/29/24 16:54 Pulse Rate 69 08/29/24 16:54 Respiratory Rate 20 08/29/24 16:54 Blood Pressure 110/63 08/29/24 16:54 Pulse Oximetry 100 08/29/24 16:54 Oxygen Delivery Room Air 08/29/24 16:54 Temperature 36.8 C 08/29/24 16:54 Pulse Rate 69 08/29/24 16:54 Respiratory Rate 20 08/29/24 16:54 Blood Pressure 110/63 08/29/24 16:54 Pulse Oximetry 100 08/29/24 16:54 Oxygen Delivery Room Air 08/29/24 16:54 reviewed MDM - URI/Sore Throat MDM Narrative Medical decision making narrative: 29-year-old female to Express Care with complaint of cough, nasal drainage, bilateral itching in ears for 24 hours. Patient denies fever, allergies, pertinent medical history. Patient has not attempted to treat symptoms at home. Patient able tolerate fluids by mouth. Patient resting comfortably in exam room in no acute distress. Respirations even and nonlabored. on exam, right TM erythematous with purulent fluid behind it. Posterior oropharynx with postnasal drainage. Exam findings consistent with right otitis media.Patient negative for COVID and influenza in clinic. Patient is sitting comfortably in exam room nontoxic in appearance. Patient appropriate for outpatient treatment and follow-up. Discharge instructions reviewed with patient, as well as provided in writing per nursing staff. The instructions also include specific and strict return/GO TO THE ER as well as f/u information. All questions have been answered, and the patient deny any further questions with discharge and discharge plan. Some parts of this dictation were generated by voice recognition software and may contain typographical and/or grammatical inaccuracies. Differential Diagnosis Differential diagnosis: Likely upper respiratory infection, croup, otitis media, sinusitis, viral infection, bronchitis, influenza and pharyngitis Lab Data Labs: Lab Results 08/29/24 08/29/24 Range/Units 17:14 17:32 POC Influenza A Ag Negative Negative (Negative) POC Influenza B Ag Negative Negative (Negative) POC SARS CoV-2 Ag Negative Negative (Negative) Discharge Plan Discharge Clinical Impression: Otitis media, right Patient Disposition: Home, Self-Care Condition: Stable Instructions: Ear Infection (ED) Additional Instructions: -Alternate Tylenol and Motrin per package directions for fever or pain. -Antihistamine medication such as Benadryl at night and Zyrtec/Claritin/Delmy during the day can help improve symptoms. -Use Flonase twice a day for 5 days then daily to help reduce the inflammation and dry up your sinuses. -You can also use Sudafed or Mucinex. Be sure to drink plenty of water with these medications at least 8 ounces with every dose and it is important to drink 8 to 10 glasses of water per day. Water is a natural decongestant -Eat and drink things that are easy to swallow, like tea or soup, or popsicles. -Oral rinses such as: Salt water gargles and/or may use topical anesthetic (eg. Chloraseptic spray) or lozenges to relieve dryness or throat pain). -Frequent hand washing or hand honeycomb blanket maker is one of the best ways to prevent spread of infection. -Using a vaporizer or humidifier at night will also help thin secretions and help with coughing up phlegm. -Follow up with primary care provider in 2-3 days if condition is not improving; or seek ER visit if you have trouble breathing, cannot drink enough fluids, have muffled voice, difficulty opening your mouth, or severe swelling. Prescriptions: New amoxicillin 875 mg tablet 875 mg PO Q12H Qty: 20 0RF No Action [id number] 3.5-10,000-1 mg/mL-unit/mL-% drops,suspension 4 drp EACH EAR QID 10 Days Qty: 10 0RF Rx Instructions: Lie with the ear upward for 5 minutes diazepam 5 mg tablet 5 mg PO DAILY Vraylar 1.5 mg capsule 1.5 mg PO DAILY clotrimazole 1 % solution See Rx Instructions topical TID Qty: 30 0RF Rx Instructions: 5 drops, three times per day, for two weeks in the left ear canal sertraline [Zoloft] 50 mg tablet 50 mg PO DAILY Follow-up/Referrals: PHYSICIAN,SALOON KEEPER [Primary Care Provider] - Stand Alone Forms: Work/School Release IP
[2024-08-29 17:34] LABS: EDCOVIDSCREEN Negative (Negative)
[2024-08-29 17:35] LABS: EDINFLUASCREEN Negative (Negative); EDINFLUBSCREEN Negative (Negative)
== END 2024-08-29 17:41 | disposition home or self-care (01) ==
PROVIDERS: Emergency Provider Nurse Practitioner Family
DX: H66.91 Otitis media, unspecified, right ear (principal); F17.210 Nicotine dependence, cigarettes, uncomplicated; Z20.822 Contact with and (suspected) exposure to COVID-19
CPT/HCPCS: 87426; 87804; 99213; G0463

== ENCOUNTER 2025-01-09 17:42 | Emergency (ER) | payer SELFPAY ==
--- OUTSIDE RECORDS SUMMARY | 2025-01-09 17:44 | XMS_ITS | Continuity of Care Document ---
Author Organization [facility] Address [address] [facility] [place] [address] Phone Care Team Providers Care Colleter Name Role Phone Pillo Garcia MD Unavailable Unavailable Allergies, Adverse Reactions, Alerts Substance Reaction Status Criticality No Known Allergies Active No Inform ation Medications Medication Instructions Dosage Effective Dates (start - stop) Status Comments Zoloft 100 mg tablet take 1 tablet by or al route every day 100 MG - Active Vraylar 1.5 mg capsule take 1 capsule by oral route every day 1.5 MG - Active Procedures Procedure Date OFFICE/OUTPATIENT VISIT, EST PREV VISIT, EST, AGE 18-39 OFFICE/OUTPATIENT VISIT, EST OFFICE/OUTPATIENT VISIT, EST OFFICE/OUTPATIENT VISIT, EST OFFICE/OUTPATIENT VISIT, EST PREV VISIT, EST, AGE 18-39 PREV VISIT, EST, AGE 18-39 OFFICE/OUTPATIENT VISIT, EST OFFICE/OUTPATIENT VISIT, EST OFFICE/OUTPATIENT VISIT, EST OFFICE/OUTPATIENT VISIT, EST OFFICE/OUTPATIENT VISIT, EST OFFICE/OUTPATIENT VISIT, EST PREV VISIT, EST, AGE 18-39 OFFICE/OUTPATIENT VISIT, EST OFFICE/OUTPATIENT VISIT, EST PREV VISIT, EST, AGE 18-39 OFFICE/OUTPATIENT VISIT, EST PREV VISIT, [facility], AGE 18-39 Advance Directives Directive Yes / No Effective Date File Name No Information Encounters Encounter Description Practice Location Reason(s) For Visit Diagnoses Date Provider Providers Copied on Encounter [facility], [address], [place], [place], [address], [place] tel:[phone] [facility] No Information 3 Jose Caceres [address], [place], [place], [address] , [place]. tel:[phone] OFFICE/OUTPA TIENT VISIT, EST [facility], [address], [place], [place], [address], [place] tel:[phone] [facility] Medicine sick (chief complaint) scapular pain1 (chief complaint) bipolar1 (chief complaint) Bursitis of right shoulderGeneralized Anxiety DisorderViral infection 2 Jose Caceres [address], [place], [place], [address] , [place]. tel:[phone] PREV VISIT, EST, AGE 18-39 [facility], [address], [place], [place], [address], [place] tel:[phone] [facility] ear pain1 (chief complaint) Encounter for general adult medical examination without abnormal findings 2 Jose Caceres [address], [place], [place], [address] , [place]. tel:[phone] OFFICE/OUTPA TIENT VISIT, EST [facility], [address], [place], [place], [address], [place] tel:[phone] [facility] sob1 (chief complaint) anxiety1 (chief complaint) liver1 (chief complaint) Chest painTachycardiaLive r diseaseConversion disorder 2 Jose Caceres [address], [place], [place], [address] , [place]. tel:[phone] OFFICE/OUTPA TIENT VISIT, [facility], [address], [place], [place], [address], [place] tel:[phone] [facility] abd pain1 (chief complaint) Abdominal painViral infection Sep-2 1 Jose Caceres [address], [place], [place], [address] , [place]. [phone] OFFICE/OUTPA TIENT VISIT, EST [facility], [address] [place], [address], [place] tel:[phone] [facility] hand 1 (chief complaint) leukocytos is1 (chief complaint) LFT (chief complaint) Mononeuropathy of right armLiver diseaseLeukocytosis Family history of endo, nutritional and metabolic diseases February- 1 Jose Caceres [address], [place], [place], [address] , [place]. tel:[phone] OFFICE/OUTPA TIENT VISIT, EST [facility], [address], [place], [place], [address], [place] tel:[phone] [facility] leukocytos is1 (chief complaint) LFT (chief complaint) anxiety1 (chief complaint) ADD (chief complaint) weight gain1 (chief complaint) Liver diseaseLeukocytosis Generalized Anxiety DisorderAttention and concentration deficitFamily history of endo, nutritional and metabolic diseasesAbnormal weight gain Mar- 1 Jose Caceres [address], [place], [place], [address] , [place]. tel:[phone] PREV VISIT, EST, AGE 18-39 [facility], [address] [place], [address], [place] tel:[phone] [facility] physical (chief complaint) Encntr for general adult medical exam w/o abnormal findings Sep-0 0 Jose Caceres [address], [place], [place], [address] , [place]. [phone] PREV VISIT, EST, AGE 18-39 [facility], [address], [place], [place], [address], [place] tel:[phone] [facility] physical (chief complaint) Encntr for general adult medical exam w/o abnormal findings 9 Jose Ferro. [address], [place], [place], [address] , [place]. tel:[phone] Referring Provider: Hansel Oneill [address], [place], [place], [address]. tel:[phone] OFFICE/OUTPA TIENT VISIT, [facility], [address], [place], [place], [address], [place] tel:[phone] [facility] abdominal pain1 (chief complaint) anxiety1 (chief complaint) hair growth1 (chief complaint) skin (chief complaint) Abdominal painGeneralized Anxiety DisorderHirsutismLi danay 8 Jose Ferro. [address], [place], [place], [address] , [place]. tel:[phone] Referring Provider: Hansel Oneill [address], [place], [place], [address]. tel:[phone] OFFICE/OUTPA TIENT VISIT, [facility], [address], [place], [place], [address], [place] tel:[phone] [facility] anxiety1 (chief complaint) libido1 (chief complaint) abd pain1 (chief complaint) cough1 (chief complaint) Pelvic painGERD w/o esophagitisDecrease d libidoGeneralized Anxiety DisorderAcute bronchitis 8 Jose Ferro. [address], [place], [place], [address] , [place]. [phone] Referring Provider: Hansel Oneill [address], [place], [place], [address]. tel:[phone] OFFICE/OUTPA TIENT VISIT, [facility], [address], [place], [place], [address], [place] tel:[phone] [facility] abdominal pain1 (chief complaint) right pelvic pain1 (chief complaint) anxiety1 (chief complaint) Abdominal painPelvic painGeneralized Anxiety DisorderGERD w/o esophagitis 0 8 Jose Caceres [address], [place], [place], [address] , [place]. [phone] Referring Provider: Hansel Oneill [address], [place], [place], [address]. tel:[phone] OFFICE/OUTPA TIENT VISIT, [facility], [address], [place], [place], [address], [place] tel:[phone] [facility] anxiety1 (chief complaint) abdominal pain1 (chief complaint) Abdominal painGeneralized Anxiety Disorder 3 8 Jose Caceres [address], [place], [address] , [place]. [phone] Referring Provider: Hansel Oneill [address], [place], [place], [address]. tel:[phone] OFFICE/OUTPA TIENT VISIT, [facility], [address], [place], [place], [address], [place] tel:[phone] [facility] abd pain1 (chief complaint) pelvic pain1 (chief complaint) anxiety1 (chief complaint) Abdominal painPelvic painGeneralized Anxiety Disorder 8 Jose Caceres [address], [place], [address] , [place]. [phone] Referring Provider: Hansel Oneill [address], [place], [address]. tel:[phone] OFFICE/OUTPA TIENT VISIT, [facility], [address], [place], [place], [address], [place] tel:[phone] [facility] HLP (chief complaint) anxiety1 (chief complaint) ADD (chief complaint) sleep (chief complaint) FatigueHyperlipidem iaGeneralized Anxiety DisorderAttention and concentration deficit 8 Jose Ferro. [address], [place], [place], [address] , [place]. tel:[phone] Referring Provider: Hansel Oneill [address], [place], [address]. tel:[phone] PREV VISIT, EST, AGE 18-39 [facility], [address], [place], [address], [place] tel:[phone] [facility] Medicine PHysical (chief complaint) Body mass index (BMI) 31.0-31.9, adultEncounter for general adult medical exam w abnormal findingsAbnormal weight gainHyperlipidemiaF atigueAttention and concentration deficit Apr-2 6-201 8 Jose Ferro. [address], [place], [address] , [place]. tel:[phone] Referring Provider: Hansel Oneill [address], [place], [address]. tel:[phone] OFFICE/OUTPA TIENT VISIT, EST [facility], [address], [place], [address], [place] [phone] [facility] anxiety1 (chief complaint) Generalized Anxiety DisorderDepression Jan-1 0- 7 Jose Ferro. [address], [place], [place], [address] , [place]. tel:[phone] Referring Provider: Hansel Oneill [address], [place], [place], [address]. tel:[phone] PREV VISIT, EST, AGE 18-39 [facility], [address], [place], [place], [address], [place] [phone] [facility] PHysical (chief complaint) Encounter for general adult medical exam w abnormal findingsDepressionG eneralized Anxiety DisorderLeukorrhea Dec-0 7-201 7 Jose Ferro. [address], [place], [address] , [place]. tel:[phone] Referring Provider: Hansel Oneill [address], [place], [place], [address]. tel:[phone] PREV VISIT, NEW, AGE 18-39 [facility], [address], [place], [place], [address], [place] tel:[phone] [facility] Medicine Physical (chief complaint) Routine Medical ExamRoutine Medical Exam 0201 4 Jose Ferro. [address], [place], [place], [address] , [place]. tel:[phone] Family History Family Member Type Diagnosis Age At Onset Mother Problem (finding) Alive and well Brother Problem (finding) Alive and well Father Problem (finding) Alive and well Mother Problem (finding) Thyroid disorder Payers Payer name Insurance type Covered alliance party ID Authoriza tion(s) No Information Social History Type Description Quantity Date Captured Comments Alcohol Use Details Unknown Caffeine Use Details Unknown Tobacco Use Status Smoking Status No Information Sex Female Chief Complaint And Reason For Visit No Information Plan Of Treatment Date Type Action Status Goal Special diet education compl eted Goal Special diet education compl eted Goal Tobacco cessation counseling completed Goal Special diet education compl eted Goal Tobacco cessation counseling completed Goal Special diet education compl eted Goal Prescribed dietary intake co mpleted Goal Tobacco cessation counseling completed Referral Ordered: Physical Therapy (related to Bursitis of right shoulder) ordered Referral Referred To: [facility] [address] [facility] [address] [place] [address], [phone] Ordered: Referrals: [facility]. Evaluate and treat ordered Referral Referred To: Physical Therapy Ordered: Referrals: Physical Therapy. Evaluate and treat ordered Referral Ordered: Cardiology (related to Chest pain) ordered Referral Ordered: Referrals: Cardiology. Evaluate and treat ordered Referral Ordered: Gastroenterology (related to Abdominal pain) ordered Referral Ordered: Referrals: Gastroenterology. Evaluate and treat ordered Referral Ordered: US EXAM, ABDOM, COMPLETE ordered Referral Ordered: SLEEP STUDY, ATTENDED ordered Referral Ordered: US, PELVIC (NONOBSTETRIC); ordered History Of Present Illness Encounter Date Complaint History Of Prese nt Illness bipolar1 Pt has chronic b ipolar and depression Pt takes zoloft and vraylar now and she is off lamictal. Pt sees psychiatrist Pt denies any suicidal or homicidal thought pt denies any crying spells Pt states that her mood is stable now scapular pain1 Pt c/o persisten t sharp pain around right scapular and just inferior to it for 6 months Pt denies any injury Pt denies any back pain, shoulder pain Pt denies any radiculopathy to right arm ,Pt states that pain is worse with movement of right arm. but she also has pain without moving her arm. Pt denies any rash, or paresthesia. Pt denies any redness or warmth. Pt rico any bug bite. sick Pt c/o acute ons et of sore throat, running nose, mild productive cough, wheezing, sob, sinus congestion, ear pain since 4 days ago. Pt denies any fever Pt denies any calf pain Pt denies any headache Pt tested negative for COVID 3 days ago. Pt denies any GI issue. Pt denies any dysphagia. Pt missed work for several days. Pt states that she is about 80% better now ear pain1 pt c/o recurrent left ear infection x 3 months. Pt c/o left inner ear itching with occasional clear drainage. Pt denies any blood. Pt c/o muffled hearing from ear. Pt has not been swimming Pt has been trying to use ear plug when she takes shower. Pt was treated with oral abx and ear drops from urgent care but has not completely cured. Pt denies right ear symptoms Pt denies any sore throat or sinus symptoms. Pt has anxiety and depression and bipolar and she is on Vraylar and lamictal now by psychiatry and doing ok Pt denies any suicidal or homicidal thought Pt denies any crying spells. Pt no longer has chest pain or palpitation or tachycardia. Pt did see cardiology and she had negative cardiac work up and she told me she was suffering from black mold infection and she moved out of the house and she no longer has any issue above liver1 Pt states that s he never did the abd ultrasound. her LFT was ok. Pt denies any abd pain sob1 Pt c/o acute ons et of overall weakness, chest pain, radiation of pain to left elbow on 10/21/21. Pt feels sob with diaphoresis and then she ease herself on the floor and she started to convulse but she never passed out. Pt is fully conscious throughout the episode. Pt called ambulance and was given ativan and was told she had panic attacks. Pt transfer to [facility] ER and had normal EKG, and she had lab done which was all normal and she was sent home. Pt then went back to ER on 10/23 with same symptoms and she apparently was rude and screaming and she ended up calling 911 from ER and had to be escorted out by security. Apparently her heart rate was 150s and she kept cursing at the medical staff throughout her ER stay. Pt states that there is definitely something wrong with her heart. Pt denies any acute chest pain or sob. Pt denies any headache anxiety1 Pt has chronic a nxiety and depression with history of bipolar and schizophrenia Pt stopped seeing psychiatrist and she stopped effexor and abilify, etc .Pt denies any suicidal or homicidal or self harming thought. Pt states that she is doing ok currently in terms of her mood. abd pain1 Pt c/o diffuse a bd pain including midepigastric area and left side of bellybutton and under left rib cage for 2 weeks but getting worse during the last 2 days. Pt c/o nausea without vomiting or diarrhea or constipation. Pt denies any blood in stool. Pt denies any relationship to food. Pt feels constant sharp an dull pain 03/25. Pt feels feverish sometimes but she has not checked her temp. Pt has mild cough and sob as well .Pt feels mild headache. pt denies any hematemesis. Pt has decreased appetite and she has not been eating very much during last two days. Pt is still drinking liquid and is able to keep it down. Pt feels fatigue, diffuse malaise. Pt denies any sick contact . hand 1 Pt c/o acute ons et of right hand numbness and tingling since last Monday. Pt states that right hand feels slightly weak but she has not been dropping things .Pt did wake up in the middle of the night for several times with right hand numbness and tingling. Pt also notices pain radiating to right elbow. Pt denies any muscle weakness or atrophy or cold extremity and no finger discoloration. Pt rico any elbow pain or any injury Pt denies any neck pain or any radiculopathy symptoms. 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 leukocytosis1 Leukocytosis res olved. Pt denies any recurrent fever or infection LFT Repeat LFT and h epatitis panel normal, Along with ferritin and also ultrasound Pt denies any abd pain or jaundice. leukocytosis1 Pt has leukocyto sis. pt denies any fever or any illness . LFT Pt has borderlin e high LFT Pt denies any abd pain or jaundice Pt rarely drinks alcohol anxiety1 Pt has chronic a nxiety and depression. Pt takes effexor and valium and doing ok Pt sees psychiatrist pt denies any suicidal or homicidal thought Pt denies any crying spells. Pt is off abilify ADD Pt has ADD ,Pt d oing ok with adderall. Pt doing ok weight gain1 Pt has been gain ing weight. Pt is not very active. Pt is not on any diet physical Pt needs annual physical Pt feels dizzy spells Pt feels orthostatic dizziness. Pt feels poor balance Pt feels about to pass out when she stands up sometimes. . Pt has some headache. Pt denies any vision change Pt denies any chest pain or sob. Pt notices above symptoms for one weeks. Pt denies any tinnitus or ear pain. Pt has chronic anxiety and depression. Pt takes effexor and abilify and valium. Pt also takes adderall for ADD ,Pt sees psychiatrist. PT denies any suicidal or homicidal thought. Pt denies any crying spells. physical Pt needs annual physical Pt has recurrent midepigastric pain Pt denies any GERD pt denies any nausea, vomiting, diarrhea ,Pt had benign EGD and colonoscopy Pt had benign CT scan pt continues to have intermittent midepigastric pain randomly Pt had negative giardia and cryptosporidium testing recently at ER Pt never did the ultrasound. Pt also has anxiety and depression Pt takes Effexor 150 mg daily and also klonopin 0.5 mg BID now from psychiatrist. Pt states that klonopin only makes her drowsy. She talked to her psychiatrist who does not want to her to take valium. Pt wants to get valium from me abdominal pain1 Pt has intermitt ent midepigastric pain which is sharp in nature. Pt denies any GERD or nausea, vomiting Pt has right lower pelvic pain. Pt has not done ultrasound yet Pt went to see GI and she did colonoscopy and her EGD is soon per patient. pt denies any blood in stool. Pt denies any worsening pain with food. pt is off zantac. Pt denies any GERD. Pt had colonoscopy recently anxiety1 Pt has chronic a nxiety and depression pt takes effexor and dong ok. pt denies any suicidal or homicidal thought Pt denies any crying spells skin Pt notices a sma ll nontender growth posterior neck area for several months Pt denies any pain hair growth1 Pt notices exces sive hair under chin recently. Pt notices thinning of hair on her scalp. Pt denies any alopecia. Pt does have regular period. anxiety1 Pt has chronic a nxiety and depression Pt states that her anxiety and depression is getting better Pt feels less anxious Pt is able to get out of house now and work. Pt is overall feels 50% improvement of her symptoms. libido1 Pt notices sight ly lower sex drive since on effexor Pt states that it is not so bad Pt states that mainly seems harder to reach climax Pt denies any vaginal bleeding or discharge abd pain1 Pt has intermitt ent midepigastric abdominal pain, not worse with food Pt denies any acute pain pt has gerd and she takes zantac only PRn now Pt has pelvic pain which is chronic Pt does have pain during sex. Pt has not done pelvic ultrasound. cough1 Pt has some dry and mildly productive coughing for one week Pt feels slightly sob with coughing. Pt denies any chest pain Pt denies any sore throat or ear pain Pt has mild clear running nose Pt feels slightly wheezy. Pt denies any acute sob. pt denies any calf ana or any recent travel or bedrest anxiety1 Pt has chronic a nxiety and depression with frequent panic attacks pt states that she has not had any side effect with effexor. Pt states that her anxiety and depression are slightly improving with effexor. Pt takes propranolol PRn for panic attacks symptoms. pt denies any chest pain Pt also takes valium PRn and doing ok. Pt denies any suicidal or homicidal thought right pelvic pain1 Pt c/o right lower pelvic pain for 5 years. Pt has some sharp and dull pain randomly without any trigger factor Pt denies any urinary symptoms pt denies any vaginal bleeding or discharge Pt notices ? worsening pain during her period. Pt never seen rag collector. Pt has not done pelvic ultrasound yet. Pt denies any risk for STD. Pt did have negative GC/chlamydia testing recently abdominal pain1 Pt c/o chronic m idepigastric pain, which is sharp Pt has pain 1-2 per week regardless of activity Pt denies any pain with food. Pt denies any nausea, vomiting, diarrhea Pt has mild GERD 1-2 per week. Pt takes zantac only PRN which helps with GERD but not for the pain. . Pt has not done ultrasound yet pt denies any acute abdominal pain now. anxiety1 Pt has chronic a nxiety and depression. Pt seen multiple psychiatrist and did counseling in the past but none worked Pt has not called [facility] yet. Pt states that she is so anxious that she cannot go to work due to severe anxiety Pt tried effexor and she is still on it now and she feels more anxious with effexor Pt denies any suicidal or homicidal thought. Pt denies any crying spells. Pt is still taking effexor and she wants to give it a month Pt denies any chest pain or headache Pt has not been to work since last Monday. Pt feels slightly spacy with effexor but no other major side effects abdominal pain1 Pt has mild mide pigastric pain. pt denies any GERD Pt denies any nausea, vomiting Pt is taking zantac Pt denies any acute pain Pt has not done ultrasound yet. Pt has not noticed much difference in midepigastric pain anxiety1 pt has severe an xiety chronically Pt also feels slightly depressed. Pt denies any crying spells Pt denies any suicidal or homicidal thought. Pt has sever social anxiety and she has not driven for many years. Pt states that she has anxiety going to stores Pt has poor motivation. Pt state that propranolol dose help with the anxiety symptoms pt states that valium does help pt states that she tried multiple SSRIs and none worked and she could not tolerated. Pt denies any chest pain or palpitation pelvic pain1 Pt c/o chronic r ight lower pelvic pain for at least 5 years. Pt was ordered pelvic ultrasound but she never did it. Pt states the pain is sharp and she feels almost constant sharp pain recently for several months. Pt used to have intermittently. Pt does not think the pain is related to period. Pt denies any vaginal bleeding or vaginal discharge Pt has same sex partner for multiple years and she did not have any risk for STDs per patient pt denies any flank pain. pt denies any UTI symptoms pt denies any pain during sex. Pt denies any or chills. pt denies any appetite loss. abd pain1 Pt has intermitt ent midabdominal pain for about one year. pt has nausea when she has pain pt states that pain is dull. Pt denies any vomiting Pt is not related to food. Pt denies any GERd. Pt notices mild burning midepigastric area. Pt denies any acute pain now. Alcohol and spicy food makes it worse sometimes. pt states that sometimes when she tries to stretch her arm and she feels pain right lower quadrant sleep Pt denies any in somnia pt states that she does not snore Pt denies any breathing issue during sleep Pt feels mild fatigue in the morning. Pt states that she wakes up multiple times during the night for unknown reason. insurance denied sleep study. anxiety1 Pt has chronic a nxiety Pt denies any depression or any suicidal thought. 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 pt states that she sometimes cannot even swallow due to severe panic attacks. Pt has severely anxious and panic attacks at least 10 times per day. Pt states that she cannot talk sometimes due to anxiety. Pt states that she tried multiple SSRIs and she tried buspar and none worked she even seen the psychiatrist in the past without any improvement. Pt feels sweaty palm, unable to speak and talk and unable to function. Pt denies any suicidal or homicidal thought. Pt denies any crying spells. Pt also has palpitation with panic attacks HLP Pt has mild HLP Pt is trying low fat and low carb diet ADD Pt states that a dderall did help her with focus but made her more anxious PHysical pt needs annual physical. Pt states that she has severe social anxiety disorder. pt states that she is afraid of driving or going to store and she has no motivation, Pt states that she wakes up and going to sleep with panic attacks. pt told me zoloft and wellbutrin made her feel worse while on it. Pt also states that buspar did not work either. Pt denies any depression or any suicidal thought. Pt states that she canot focus and she feels scatter brained and she canot complete any tasks at home. Pt states that her mom has thyroid disease. her TSH is ok. Pt denies any joint pain Pt feels fatigue all the time. Pt does not snore and she does have insomnia and she feels restless at night. Pt states that she feels some trouble with breathing at night sometimes. Pt has mild HLP and low D anxiety1 Pt has chronic a nxiety and depression. Pt states that wellbutrin and celexa did not work and actually made her worse .Pt states that they gave her out of body experiences. Pt states that mostly she feels anxious and the depression is probably from anxiety. Pt denies any suicidal or homicidal thought. Pt denies any crying spells. Pt states that she wants to try zoloft again. Pt told me her friend told her about valium. Pt has no motivation. Pt does not have crying spells PHysical Pt needs annual physical. Pt has chronic anxiety and mild depression for sevaral months Pt states that she has poor interests in any activity. Pt states that she feels multiple panic attacks daily. Pt states that it is affecting her social life. Pt states that she has some crying spells intermittently. Pt denies any suicidal or homicidal thought. Pt denies any social stress. Pt used to take zoloft which did help but she stopped it on her own. Pt states that she does not socialize anymore due to her above. Pt c/o vaginal discharge and burning with urination adn mild discomfortalbe with urination. Pt states that it feels similar to BV. Pt denies any any other complaints Instructions Date Instruction Additional Infor mation Special diet education Related t o Body mass index (BMI) 27.0-27.9, adult Perform monthly self breast examinations. Related to Encntr for general adult medical exam w/o abnormal findings Quit smoking. Related to Encnt r for general adult medical exam w/o abnormal findings Increase activity. Related to En cntr for general adult medical exam w/o abnormal findings Special diet education Related t o Body mass index (BMI) 27.0-27.9, adult Stop smoking Related to Abdom inal pain Medications as instructed Relate d to Abdominal pain Special diet education Related t o Body mass index (BMI) 26.0-26.9, adult Quit smoking Related to Pelvi c pain Avoid provocative fo ods: citrus, alcohol, coffee, chocolate, mints. Related to GERD w/o esophagitis Eat smaller meals, n o eating three hours prior to bedtime. Related to GERD w/o esophagitis Elevate head of bed prior to sle ep. Related to GERD w/o esophagitis Weight management Related to Pel shanta pain Stop smoking Related to Abdom inal pain Stop smoking Related to Abdom inal pain Stop smoking Related to Abdom inal pain Special diet education Related t o Body mass index (BMI) 31.0-31.9, adult Increase physical activity Relat ed to Fatigue Weight management Related to Fat igue Weight management Related to Enc ounter for general adult medical exam w abnormal findings Increase physical activity Relat ed to Encounter for general adult medical exam w abnormal findings Prescribed dietary intake Relate d to Body mass index (BMI) 31.0-31.9, adult Prescribed Activity and Exercise Education Related to Dietary Surveillance and Counseling Prescribed Diet Educ ation/Lifestyle Education Regarding Diet Related to Dietary Surveillance and Counseling Prescribed Activity and Exercise Education Related to Dietary Surveillance and Counseling Prescribed Diet Educ ation/Lifestyle Education Regarding Diet Related to Dietary Surveillance and Counseling Assessments Type Assessment Date No Information
--- OUTSIDE RECORDS SUMMARY | 2025-01-09 17:44 | XMS_ITS | Clinical Summary ---
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 Active diazePAM (VALIUM) 5 MG Tablet Take 5 mg by mouth every 8 hours as needed. Active Cariprazine HCl (Vraylar) 4.5 MG Capsule Take by mouth. Active GUANFACINE HCL PO Take 2.5 mg by mouth daily. Active ketorolac (TORADOL) 10 MG Tablet Take 1 Tablet by mouth every 6 hours as needed for Mild or more severe pain. 15 Tablet 06/04/2024 Active Social History Tobacco Use Types Packs/Day Years Used Date Smoking Tobacco: Never Assessed Comments No Sex and Gender Information Value Date Recorded Sex Assigned at Not on file Legal Sex Female 12:48 PM CDT Gender Identity Not on file Sexual Orientation Not on file Last Filed Vital Signs Vital Sign Reading Time Taken Comments Blood Pressure 124/68 06/04/2024 2:55 PM CDT Pulse 62 06/04/2024 2:55 PM CDT Temperature 36.5 C (97.7 F) 06/04/2024 2:55 PM CDT Respiratory Rate 16 06/04/2024 2:55 PM CDT Oxygen Saturation 98% 06/04/2024 2:55 PM CDT Inhaled Oxygen Concentration - - Weight 90.7 kg (200 lb) 06/04/2024 1:00 PM CDT Height 160 cm (5' 3 ) 06/04/2024 1:00 PM CDT Body Mass Index 35.43 06/04/2024 1:00 PM CDT Plan of Treatment Health Maintenance Due Date Last Done Comments Hepatitis C Virus (HCV) Screening 1993 Pap Smear 2014 Cervical Cancer Screening (CCS) 2023 HPV/Cotest 2023 Influenza Immunization (#1) 2024 07/24/2008 SARS-COV-2 Immunization ( season) 2024 07/21/2022, 11/09/2020 Respiratory Syncytial Virus (RSV) Immunization (Adult) (1 - 1-dose 75+ series) 2068 Hepatitis B Immunization Completed 994, 1993, 1993 TdaP Immunization Completed 08/26/2021, 06/30/2006 Meningococcal Immunization (ACWY) Aged Out No longer eligible b ased on patient's age to complete this topic Pneumococcal Immunization Combined Aged Out No longer eligible b ased on patient's age to complete this topic Rotavirus Immunization Aged Out No lo nger eligible based on patient's age to complete this topic Insurance [place]ICAID [place] Care Teams 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
--- OUTSIDE RECORDS SUMMARY | 2025-01-09 17:45 | XMS_ITS ---
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 Name Role Phone Rosa M Kerr Primary Care Provider [phone] Dipesh Duke [phone] REASON FOR VISIT work excuse letter Social History Sex Assigned At : Social History Observation Description Sex Assigned At Female Encounters Encounter Location Date Provider Diagnosis [address] [place] [address] 12/11/2024 Dipesh Duke Plan Of Treatment No Information Progress Notes * Ricki SANCHESOB:1995 (29 yo F)Acc No.[id number]:12/11/2024 Patient: Greyson LANGLEY :1995 A ge:29 Y S ex:Female Address:[address] [place] [address], [id number] * true * Date: Generated for Nba collado/Shirley/eTransmitting on: 0 01/09/2025 05:45 PM CDT
--- OUTSIDE RECORDS SUMMARY | 2025-01-09 17:45 | XMS_ITS | Patient Health Record ---
Author Organization [facility] Address [address] [place] [address] Care Team Providers Care Framing Mechanic Name Role Phone Rosa M Kerr Primary Care Provider [phone] Dipesh Duke Unavailable [phone] Dian Esquivel Unavailable [phone] Allergies Allergen (clinical drug ingredient) Drug/Non Drug Allergy documented on EMR Reaction Allergy Type Onset Date Status No Known Drug Allergy Unknown Drug Allergy Active No Known Food Allergy Unknown Drug Allergy Active Reason For Referral No Information Medications Medication SIG (Take, Route, Frequency, Duration) Notes Start Date End Date Status Multivitamin - 1 tablet Orally Once a day Unknown Ondansetron HCl 4 MG 1 tablet Orally Once a day for 14 days As needed for nausea 02/07/2024 Active Lurasidone HCl 60 MG 1 tablet in the evening with food Orally Once a day for 90 days Bumping up to 60 mg on dose. Client does not have insurance. May need GoodRx coupon or cheapest dose on lurasidone helpful. 09/02/2024 Active Symbicort 80-4.5 MCG/ACT 2 puffs as needed Inhalation Once a day 07/05/2023 Unknown diazePAM 5 MG 1 tablet Orally Three times daily for 30 days As needed for severe anxiety/panic attacks 12/10/2024 Active guanFACINE HCl ER 2 MG 1 tablet at bedtime Orally Once a day for 90 days 01/08/2024 Active Sertraline HCl 100 MG TAKE 1 AND 1/2 TABLETS BY MOUTH EVERY DAY Once a day for 90 days Active Social History Tobacco Use: Social History Observation Description Date Details (start date - stop date) Unknown Sex Assigned At : Social History Observation Description Sex Assigned At Female Dont use, Tobacco Use/Smoking Question Answer Notes Are you a Uses tobacco in other forms Additional Findings: Tobacco User Light cigarett e smoker ((1-9 cigs/day) Problems Problem Type SNOMED Code ICD Code Onset Dates Problem Status W/U Status Risk Notes Problem Borderline personality disorder () Borderline personality disorder (F60.3) Active confirmed Problem Attention deficit hyperactivity disorder (834888154) ADHD (attention deficit hyperactivity disorder) (F90.9) Active confirmed R/O versus comorbid with Bipolar Problem Social anxiety disorder (44324881) Social anxiety disorder (F40.10) Active confirmed Problem Asthma (268808551) Asthma (J45.909) Active confirmed Problem Panic disorder (121050204) Panic disorder (F41.0) Active confirmed Problem [id number] Obesity (BMI 30.0-34.9) (E66.9) Active confirmed Problem Mixed bipolar I disorder (34871907) Bipolar 1 disorder, mixed (F31.60) Active confirmed Problem 61871411 Post traumatic stress disorder (PTSD) (F43.10) Active confirmed Problem Concentration deficit (R41.840) Active confirmed Problem 28090328 Nicotine dependence, uncomplicated, unspecified nicotine product type (F17.200) Active confirmed Problem Bipolar II disorder (81342917) Bipolar II disorder major depressive with melancholic features (F31.81) Inactive differential Encounters Encounter Location Date Provider Diagnosis [address] [address] 01/23/2024 Dipesh Duke Bipolar 1 disorder, mixed F31.60 ; Post traumatic stress disorder (PTSD) F43.10 ; Social anxiety disorder F40.10 ; Panic disorder F41.0 and Borderline personality disorder F60.[address] [address] 02/06/2024 Dipesh Duke Social anxiety disorder F40.10 ; Bipolar 1 disorder, mixed F31.60 ; Panic disorder F41.0 ; ADHD (attention deficit hyperactivity disorder) F90.9 and Post traumatic stress disorder (PTSD) F43.[address] [address] 04/17/2024 Dipesh Duke Bipolar 1 disorder, mixed F31.60 ; Post traumatic stress disorder (PTSD) F43.10 ; Social anxiety disorder F40.10 ; Panic disorder F41.0 and ADHD (attention deficit hyperactivity disorder) F90.[address] [address] 06/10/2024 Dipesh Duke Bipolar 1 disorder, mixed F31.60 ; Borderline personality disorder F60.3 ; Post traumatic stress disorder (PTSD) F43.10 and Social anxiety disorder F40.[address] [address] 09/02/2024 Dipesh Duke Bipolar 1 disorder, mixed F31.60 ; Borderline personality disorder F60.3 ; Post traumatic stress disorder (PTSD) F43.10 ; Social anxiety disorder F40.10 and Panic disorder F41.[address] [address] 12/10/2024 Dipesh Duke Bipolar 1 disorder, mixed F31.60 and Social anxiety disorder F40.[address] [address] 02/07/2024 Rosa M Kerr Medication side effect T88.7XXA [address] [address] 04/09/2024 Dipesh Duke Social anxiety disorder F40.10 ; Bipolar 1 disorder, mixed F31.60 and ADHD (attention deficit hyperactivity disorder) F90.9 [facility] [address], [place] [address] 11/29/2024 Dian Esquivel Social anxiety disorder F40.10 and Bipolar 1 disorder, mixed F31.[address] [address] 12/05/2024 Dipesh Duke Bipolar 1 disorder, mixed F31.[address] [address] 12/11/2024 Dipesh Duke Assessments Encounter Date Diagnosis (ICD Code) Assessment Notes Treatment Notes Treatment Clinical Notes Section Notes 01/23/2024 Bipolar 1 disorder, mixed (ICD-10 - F31.60) Client appears to have comorbid bipolar 1 and BPD after discussion about mood lability and symptoms of BPD. Client's symptoms have remitted some with medication but not fully. Discussed DBT as option going forward and highly encourage client to consider therapy as treatment option. Have recommended in past several times with lack of f/u by client. Client states she is highly considering this. No changes to medication tx plan as appears symptom improvement. 01/23/2024 Post traumatic stress disorder (PTSD) (ICD-10 - F43.10) Client appears to have comorbid bipolar 1 and BPD after discussion about mood lability and symptoms of BPD. Client's symptoms have remitted some with medication but not fully. Discussed DBT as option going forward and highly encourage client to consider therapy as treatment option. Have recommended in past several times with lack of f/u by client. Client states she is highly considering this. No changes to medication tx plan as appears symptom improvement. 02/06/2024 Social anxiety disorder (ICD-10 - F40.10) Client continues to struggle with focus/concentra tion. Anxiety assisted by guanfacine, concentration has not. Is agreeable to trial low dose Strattera. No other treatment plan changes. 02/06/2024 Bipolar 1 disorder, mixed (ICD-10 - F31.60) Client continues to struggle with focus/concentra tion. Anxiety assisted by guanfacine, concentration has not. Is agreeable to trial low dose Strattera. No other treatment plan changes. 02/07/2024 Medication side effect (ICD-10 - T88.7XXA) 04/09/2024 Social anxiety disorder (ICD-10 - F40.10) 04/17/2024 Bipolar 1 disorder, mixed (ICD-10 - F31.60) Client stopped benztropine due to EPS movements subsiding and client being able to taper off medication. Atomoxetine discontinued due to client never starting. Client feels other medications at good levels, that she is fairly stable and does not want any changes. 06/10/2024 Bipolar 1 disorder, mixed (ICD-10 - F31.60) Client has crisis numbers, encouraged to call if needed. States she will. Client given resources for how to set up therapy for if keeps state insurance and for if transitions into private insurance. Client writes information down. No changes to medications at this appointment. Encouraged client to exercise, eat balanced diet, increase social interactions to aide with depressive symptoms as well. 09/02/2024 Bipolar 1 disorder, mixed (ICD-10 - F31.60) Client agreeable to switch to generic Latuda due to loss of insurance. Will see if helpful for depression/anxi ety. Discussed lifestyle changes (exercise, healthy eating, hobbies, pursuing GED) to help with depression. 11/29/2024 Social anxiety disorder (ICD-10 - F40.10) 12/05/2024 Bipolar 1 disorder, mixed (ICD-10 - F31.60) 12/10/2024 Bipolar 1 disorder, mixed (ICD-10 - F31.60) Client overall doing better with change from Vraylar to lurasidone. Some spaced out f/u due to lack of insurance and financial constraints. Client interested in increase in lurasidone due to some rebound symptoms - possibily due to client adjusting to medication. Client agreeable to increase to 60 mg from 40 mg. No other changes to treatment plan. 12/10/2024 Social anxiety disorder (ICD-10 - F40.10) Client overall doing better with change from Vraylar to lurasidone. Some spaced out f/u due to lack of insurance and financial constraints. Client interested in increase in lurasidone due to some rebound symptoms - possibily due to client adjusting to medication. Client agreeable to increase to 60 mg from 40 mg. No other changes to treatment plan. 11/29/2024 Bipolar 1 disorder, mixed (ICD-10 - F31.60) 09/02/2024 Borderline personality disorder (ICD-10 - F60.3) Client agreeable to switch to generic Latuda due to loss of insurance. Will see if helpful for depression/anxi ety. Discussed lifestyle changes (exercise, healthy eating, hobbies, pursuing GED) to help with depression. 04/17/2024 Post traumatic stress disorder (PTSD) (ICD-10 - F43.10) Client stopped benztropine due to EPS movements subsiding and client being able to taper off medication. Atomoxetine discontinued due to client never starting. Client feels other medications at good levels, that she is fairly stable and does not want any changes. 06/10/2024 Borderline personality disorder (ICD-10 - F60.3) Client has crisis numbers, encouraged to call if needed. States she will. Client given resources for how to set up therapy for if keeps state insurance and for if transitions into private insurance. Client writes information down. No changes to medications at this appointment. Encouraged client to exercise, eat balanced diet, increase social interactions to aide with depressive symptoms as well. 04/09/2024 Bipolar 1 disorder, mixed (ICD-10 - F31.60) 02/06/2024 Panic disorder (ICD-10 - F41.0) Client continues to struggle with focus/concentra tion. Anxiety assisted by guanfacine, concentration has not. Is agreeable to trial low dose Strattera. No other treatment plan changes. 01/23/2024 Social anxiety disorder (ICD-10 - F40.10) Client appears to have comorbid bipolar 1 and BPD after discussion about mood lability and symptoms of BPD. Client's symptoms have remitted some with medication but not fully. Discussed DBT as option going forward and highly encourage client to consider therapy as treatment option. Have recommended in past several times with lack of f/u by client. Client states she is highly considering this. No changes to medication tx plan as appears symptom improvement. 01/23/2024 Panic disorder (ICD-10 - F41.0) Client appears to have comorbid bipolar 1 and BPD after discussion about mood lability and symptoms of BPD. Client's symptoms have remitted some with medication but not fully. Discussed DBT as option going forward and highly encourage client to consider therapy as treatment option. Have recommended in past several times with lack of f/u by client. Client states she is highly considering this. No changes to medication tx plan as appears symptom improvement. 02/06/2024 ADHD (attention deficit hyperactivity disorder) (ICD-10 - F90.9) R/O versus comorbid with Bipolar Client continues to struggle with focus/concentra tion. Anxiety assisted by guanfacine, concentration has not. Is agreeable to trial low dose Strattera. No other treatment plan changes. 04/09/2024 ADHD (attention deficit hyperactivity disorder) (ICD-10 - F90.9) R/O versus comorbid with Bipolar 04/17/2024 Social anxiety disorder (ICD-10 - F40.10) Client stopped benztropine due to EPS movements subsiding and client being able to taper off medication. Atomoxetine discontinued due to client never starting. Client feels other medications at good levels, that she is fairly stable and does not want any changes. 06/10/2024 Post traumatic stress disorder (PTSD) (ICD-10 - F43.10) Client has crisis numbers, encouraged to call if needed. States she will. Client given resources for how to set up therapy for if keeps state insurance and for if transitions into private insurance. Client writes information down. No changes to medications at this appointment. Encouraged client to exercise, eat balanced diet, increase social interactions to aide with depressive symptoms as well. 09/02/2024 Post traumatic stress disorder (PTSD) (ICD-10 - F43.10) Client agreeable to switch to generic Latuda due to loss of insurance. Will see if helpful for depression/anxi ety. Discussed lifestyle changes (exercise, healthy eating, hobbies, pursuing GED) to help with depression. 09/02/2024 Social anxiety disorder (ICD-10 - F40.10) Client agreeable to switch to generic Latuda due to loss of insurance. Will see if helpful for depression/anxi ety. Discussed lifestyle changes (exercise, healthy eating, hobbies, pursuing GED) to help with depression. 04/17/2024 Panic disorder (ICD-10 - F41.0) Client stopped benztropine due to EPS movements subsiding and client being able to taper off medication. Atomoxetine discontinued due to client never starting. Client feels other medications at good levels, that she is fairly stable and does not want any changes. 06/10/2024 Social anxiety disorder (ICD-10 - F40.10) Client has crisis numbers, encouraged to call if needed. States she will. Client given resources for how to set up therapy for if keeps state insurance and for if transitions into private insurance. Client writes information down. No changes to medications at this appointment. Encouraged client to exercise, eat balanced diet, increase social interactions to aide with depressive symptoms as well. 02/06/2024 Post traumatic stress disorder (PTSD) (ICD-10 - F43.10) Client continues to struggle with focus/concentra tion. Anxiety assisted by guanfacine, concentration has not. Is agreeable to trial low dose Strattera. No other treatment plan changes. 01/23/2024 Borderline personality disorder (ICD-10 - F60.3) Client appears to have comorbid bipolar 1 and BPD after discussion about mood lability and symptoms of BPD. Client's symptoms have remitted some with medication but not fully. Discussed DBT as option going forward and highly encourage client to consider therapy as treatment option. Have recommended in past several times with lack of f/u by client. Client states she is highly considering this. No changes to medication tx plan as appears symptom improvement. 04/17/2024 ADHD (attention deficit hyperactivity disorder) (ICD-10 - F90.9) R/O versus comorbid with Bipolar Client stopped benztropine due to EPS movements subsiding and client being able to taper off medication. Atomoxetine discontinued due to client never starting. Client feels other medications at good levels, that she is fairly stable and does not want any changes. 09/02/2024 Panic disorder (ICD-10 - F41.0) Client agreeable to switch to generic Latuda due to loss of insurance. Will see if helpful for depression/anxi ety. Discussed lifestyle changes (exercise, healthy eating, hobbies, pursuing GED) to help with depression. [place]23[place]24 [place]. Discussed sleep hygiene and caffeine intake with encouragement to limit electronic devices an hour before bed and to limit caffeine after 3:00pm. Exercise benefits for mood and health discussed. Psychoeducation regarding psychiatric illness provided. Client was educated about risks and benefits of medication, alternatives to medication, off label uses of medication, suicidal ideation with SSRIs, self-administratio n and compliance with medication along with how to safely store medication. Verbal informed consent obtained. Client agrees to return sooner if symptoms worsen or if suicidal or homicidal ideations occur. Client has the phone number to the 24-hour crisis line at [facility]. Questions addressed. Client verbalized understanding of all information and is agreeable to treatment plan. Client appears to have comorbid bipolar 1 and BPD after discussion about mood lability and symptoms of BPD. Client's symptoms have remitted some with medication but not fully. Discussed DBT as option going forward and highly encourage client to consider therapy as treatment option. Have recommended in past several times with lack of f/u by client. Client states she is highly considering this. No changes to medication tx plan as appears symptom improvement. 02/06/2024 [place] Discussed sleep hygiene and caffeine intake with encouragement to limit electronic devices an hour before bed and to limit caffeine after 3:00pm. Exercise benefits for mood and health discussed. Psychoeducation regarding psychiatric illness provided. Client was educated about risks and benefits of medication, alternatives to medication, off label uses of medication, suicidal ideation with SSRIs, self-administratio n and compliance with medication along with how to safely store medication. Verbal informed consent obtained. Client agrees to return sooner if symptoms worsen or if suicidal or homicidal ideations occur. Client has the phone number to the 24-hour crisis line at [facility]. Questions addressed. Client verbalized understanding of all information and is agreeable to treatment plan. Client continues to struggle with focus/concentra tion. Anxiety assisted by guanfacine, concentration has not. Is agreeable to trial low dose Strattera. No other treatment plan changes. 04/17/2024 [place]. Discussed sleep hygiene and caffeine intake with encouragement to limit electronic devices an hour before bed and to limit caffeine after 3:00pm. Exercise benefits for mood and health discussed. Psychoeducation regarding psychiatric illness provided. Client was educated about risks and benefits of medication, alternatives to medication, off label uses of medication, suicidal ideation with SSRIs, self-administratio n and compliance with medication along with how to safely store medication. Verbal informed consent obtained. Client agrees to return sooner if symptoms worsen or if suicidal or homicidal ideations occur. Client has the phone number to the 24-hour crisis line at [facility]. Questions addressed. Client verbalized understanding of all information and is agreeable to treatment plan. Client stopped benztropine due to EPS movements subsiding and client being able to taper off medication. Atomoxetine discontinued due to client never starting. Client feels other medications at good levels, that she is fairly stable and does not want any changes. 06/10/2024 [place]. Discussed sleep hygiene and caffeine intake with encouragement to limit electronic devices an hour before bed and to limit caffeine after 3:00pm. Exercise benefits for mood and health discussed. Psychoeducation regarding psychiatric illness provided. Client was educated about risks and benefits of medication, alternatives to medication, off label uses of medication, suicidal ideation with SSRIs, self-administratio n and compliance with medication along with how to safely store medication. Verbal informed consent obtained. Client agrees to return sooner if symptoms worsen or if suicidal or homicidal ideations occur. Client has the phone number to the 24-hour crisis line at [facility]. Questions addressed. Client verbalized understanding of all information and is agreeable to treatment plan. Client has crisis numbers, encouraged to call if needed. States she will. Client given resources for how to set up therapy for if keeps state insurance and for if transitions into private insurance. Client writes information down. No changes to medications at this appointment. Encouraged client to exercise, eat balanced diet, increase social interactions to aide with depressive symptoms as well. 09/02/2024 [place]. Discussed sleep hygiene and caffeine intake with encouragement to limit electronic devices an hour before bed and to limit caffeine after 3:00pm. Exercise benefits for mood and health discussed. Psychoeducation regarding psychiatric illness provided. Client was educated about risks and benefits of medication, alternatives to medication, off label uses of medication, suicidal ideation with SSRIs, self-administratio n and compliance with medication along with how to safely store medication. Verbal informed consent obtained. Client agrees to return sooner if symptoms worsen or if suicidal or homicidal ideations occur. Client has the phone number to the 24-hour crisis line at [facility]. Questions addressed. Client verbalized understanding of all information and is agreeable to treatment plan. Client agreeable to switch to generic Latuda due to loss of insurance. Will see if helpful for depression/anxi ety. Discussed lifestyle changes (exercise, healthy eating, hobbies, pursuing GED) to help with depression. 12/10/2024 [place]. Discussed sleep hygiene and caffeine intake with encouragement to limit electronic devices an hour before bed and to limit caffeine after 3:00pm. Exercise benefits for mood and health discussed. Psychoeducation regarding psychiatric illness provided. Client was educated about risks and benefits of medication, alternatives to medication, off label uses of medication, suicidal ideation with SSRIs, self-administratio n and compliance with medication along with how to safely store medication. Verbal informed consent obtained. Client agrees to return sooner if symptoms worsen or if suicidal or homicidal ideations occur. Client has the phone number to the 24-hour crisis line at [facility]. Questions addressed. Client verbalized understanding of all information and is agreeable to treatment plan. Client overall doing better with change from Vraylar to lurasidone. Some spaced out f/u due to lack of insurance and financial constraints. Client interested in increase in lurasidone due to some rebound symptoms - possibily due to client adjusting to medication. Client agreeable to increase to 60 mg from 40 mg. No other changes to treatment plan. Plan Of Treatment No Information Insurance Providers Payer Name Payer Address Payer Phone Subscriber Number Group Number Insured Name Patient Relationship to Insured Coverage Start Date Coverage End Date [employer] [address] [place] [phone] [id number] Dane Greyson Self - patient is the insured 7 4 [employer] [address] [place] [phone] [id number] Dane Greyson Self - patient is the insured 1 4 Medical (General) History Medical History History ICD Code Attention deficit hyperactiv ity disorder (ADHD), predominantly inattentive type F90.0 Bipolar II disorder F31.81 Surgical History Surgery Date(Month/Year) Hospitalization History Reason Date(Month/Year)
--- OUTSIDE RECORDS SUMMARY | 2025-01-09 17:45 | XMS_ITS ---
Author Organization [facility] Address [address] [place] [address] Care Team Providers Care Chaplaincy Name Role Phone Rosa M Kerr Primary Care Provider [phone] Dipesh Duke [phone] REASON FOR VISIT refill Medications Medication SIG (Take, Route, Frequency, Duration) Notes Start Date End Date Status Lurasidone HCl 40 MG 1 tablet in the evening with food Orally Once a day for 5 days Stopping Vraylar and replacing with generic Latuda. Client lost insurance, cheapest ghosh for luasidone helpful. 09/02/2024 Active Social History Sex Assigned At : Social History Observation Description Sex Assigned At Female Encounters Encounter Location Date Provider Diagnosis [address] [address] 12/05/2024 Dipesh Duke Bipolar 1 disorder, mixed F31.60 Assessments Encounter Date Diagnosis (ICD Code) Assessment Notes Treatment Notes Treatment Clinical Notes Section Notes 12/05/2024 Bipolar 1 disorder, mixed (ICD-10 - F31.60) Plan Of Treatment Medication Medication Name Sig Start Date Stop Date Notes Lurasidone HCl 40 MG 1 tablet in the evening with food Orally Once a day for 5 days 09/02/2024 Stopping Vraylar and replacing with generic Latuda. Client lost insurance, cheapest ghosh for luasidone helpful. Progress Notes * Ricki SANCHESOB:1995 (29 yo F)Acc No.[id number]:12/05/2024 Patient: Greyson LANGLEY :1995 A ge:29 Y S ex:Female Address:[address] [place] [address], [id number] * Refills Continue Lurasidone HCl Tablet, 40 MG, Orally, 5 Tablet, 1 tablet in the evening with food, Once a day, 5 days * true * Date: Generated for Nba collado/Shirley/Jinitting on: 0 01/09/2025 05:45 PM CDT
--- OUTSIDE RECORDS SUMMARY | 2025-01-09 17:45 | XMS_ITS | CONTINUITY OF CARE DOCUMENT ---
Author Name justin anderson Address Unknown Organization [facility] Address [address] [place] [address] Phone [phone] Care Team Providers Care Regional Project Manager Name Role Phone Oswald ROSS, Kavita Unavailable COURTNEY ROSS, NADIR Unavailable [phone] NADIR VALDEZ MD Unavailable [phone] PROBLEMS Condition Status Date Provider Notes Screening active Kavita Akers MD Substernal chest pain active Kavita Akers MD Shortness of breath (SOB) active Kavita goode MD Tachycardia active Kavita Akers MD Syncope active Kavita Akers MD ENCOUNTERS Date Type Provider Location Encounter Diag nosis - In-person encounter Office Visit Kavita Akers MD [facility] - In-person encounter Office Visit Kavita Akers MD [facility] ScreeningSubsternal chest painShortness of breath (SOB)TachycardiaSyncope VITAL SIGNS Date Observation Value Provider Body Mass Index (Ratio) 26.60 kg/m2 Conchita Dunhammeyer blood pressure, diastolic 67 mm[Hg] Li nkLogic blood pressure, systolic 108 mm[Hg] Pinky kLogic blood pressure, diastolic 67 mm[Hg] Sa ra Conde blood pressure, systolic 108 mm[Hg] Miguel Angel a Conde oxygen saturation, oximetry 99 % Kenyd Conde respiratory rate E&M 21 /min Kendy Si ms pulse rate 89 /min Kendy Conde weight E&M 155 [lb_av] Kendy Conde blood pressure, cuff size regular Sa ra Conde height E&M 64 [in_i] Kendy Etoile Body Mass Index (Ratio) 26.26 kg/m2 Hina Akers MD blood pressure, diastolic 80 mm[Hg] Li nkLogic blood pressure, systolic 110 mm[Hg] Pinky kLog blood pressure, cuff size large Tr aneta Rogers blood pressure, diastolic 80 mm[Hg] Tr aneta Rogers blood pressure, systolic 110 mm[Hg] Nguyen Rogers oxygen saturation, oximetry 98 % Shelbi Rogers respiratory rate E&M 16 /min Shelbi Rogers pulse rate 90 /min Shelbi Rogers weight E&M 153 [lb_av] Shelbi Rogers height E&M 64 [in_i] Shelbi Rogers ALLERGIES No Known Drug Allergies HISTORY OF MEDICATION USE Medication Status Instructions Dates Provider Indications Com ments Cardizem 30 mg tablet completed Take 1 tablet by mouth twice a day - Kavita Akers MD SOCIAL HISTORY Date Observation Value Provider social history E&M Smoking Histo ry: Emeka adames is a former smoker. Kavita Akers MD social history reviewed E&M revi ewed - no changes required Kavita Akers MD social history E&M S moking History: Emeka adames is a former smoker. Kavita Akers MD social history reviewed E&M revi ewed - no changes required Kavita Akers MD cigarette use yes Shelbi parker smoking status Former smoker Shelbi Husseinkiran rds INSURANCE PROVIDERS Payer name Policy type / Coverage type Renea red constitution party ID [place] MEDICAID Medicaid [id number] ADVANCE DIRECTIVES Name Date DISCUSSED - NO DECISION MADE TREATMENT PLAN Date Name Performer [id number],C, N o further episodes of syncope. Nica Teodoro [id number],C, E cho showed normal EF at 60% and no wall motion or valvular abnormalities. Nica Teodoro [id number],C, R esults of PFTs pending. No SOB today Nica Teodoro [id number],C, H olter monitor showed junctional rhythm and narrow complex tachycardia, sinus vs. atrial tachycardia with occasional PVC. Will start her on Cardizem 30 mg once a day. No further episodes of dizziness or syncope. Nica Valerio [id number],C, T he pt denied episodes of passing out but also says as she moves around at home she falls. Kavita Akers MD [id number],C, T he etiology is unclear she was noted to be SOB while talking. We will get a PFT done. Kavita Akers MD [id number],N, H istory of rapid heart rate with dizzness and fainting and possible syncope. Today she is in sinus rhtyhm the EKG does not show any signifcant abnormality we will get a Telecentry monitor to rule out any signifcant arrthymia. Kavita Akers MD [id number],N,W e will get the information from ER. We will get an echo done to assess wall motion and EF. Kavita Akers MD Cardiology: N o further episodes of syncope. Nica Valerio Cardiology: E cho showed normal EF at 60% and no wall motion or valvular abnormalities. Nica Valerio Cardiology: R esults of PFTs pending. No SOB today Nica Valerio Cardiology: H olter monitor showed junctional rhythm and narrow complex tachycardia, sinus vs. atrial tachycardia with occasional PVC. Will start her on Cardizem 30 mg once a day. No further episodes of dizziness or syncope. Nica Valerio Cardiology: T he pt denied episodes of passing out but also says as she moves around at home she falls. Kavita Akers MD Cardiology: T he etiology is unclear she was noted to be SOB while talking. We will get a PFT done. Kavita Akers MD Cardiology: H istory of rapid heart rate with dizzness and fainting and possible syncope. Today she is in sinus rhtyhm the EKG does not show any signifcant abnormality we will get a Telecentry monitor to rule out any signifcant arrthymia. Kavita Akers MD Cardiology:We will g et the information from ER. We will get an echo done to assess wall motion and EF. Kavita Akers MD Date Name Monitor - Telemetry (Mobile Cardiac) DLCO - 61230 FRC - 30984 FVC - 80337 Complete Echo HISTORY OF PROCEDURES Procedure Date Procedure Name Provider Procedure Notes S tatus EKG Kavita Akers MD complet ed Spirometry Kavita Akers MD complet ed FVC / MVV with bronchodilator - 29296 Kavita Akers MD completed FRC - 85423 Kavita Akers MD comple nithin SpO2 w/o 6min walk/titration Kavita Akers MD completed SVC - 48844 Kavita Akers MD comple nithin DLCO - 02276 Kavita Akers MD compl eted EKG Kavita Akers MD complet ed
--- OUTSIDE RECORDS SUMMARY | 2025-01-09 17:46 | XMS_ITS ---
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 Name Role Phone Rosa M Kerr Primary Care Provider [phone] Dipesh Duke [phone] Allergies Allergen (clinical drug ingredient) Drug/Non Drug Allergy documented on EMR Reaction Allergy Type Onset Date Status No Known Drug Allergy Unknown Drug Allergy Active No Known Food Allergy Unknown Drug Allergy Active REASON FOR VISIT 4 week F/U Medications Medication SIG (Take, Route, Frequency, Duration) Notes Start Date End Date Status Multivitamin - 1 tablet Orally Once a day Unknown Symbicort 80-4.5 MCG/ACT 2 puffs as needed [...] Once a day for 90 days Active Ondansetron HCl 4 MG 1 tablet Orally Once a day for 14 days As needed for nausea 02/07/2024 Active Lurasidone HCl 60 MG 1 tablet in the evening with food Orally Once a day for 90 days Bumping up to 60 mg on dose. Client does not have insurance. May need GoodRx coupon or cheapest dose on lurasidone helpful. 09/02/2024 Active Social History Sex Assigned At : Social History Observation Description Sex Assigned At Female Encounters Encounter Location Date Provider Diagnosis [address] [place] [address] 12/10/2024 Dipesh Duke Bipolar 1 disorder, mixed F31.60 and Social anxiety disorder F40.10 Assessments Encounter Date Diagnosis (ICD Code) Assessment Notes Treatment Notes Treatment Clinical Notes Section Notes 12/10/2024 Bipolar 1 disorder, mixed (ICD-10 - [...] No other changes to treatment plan. [place]/10/[place]24 [place] [...] uses of medication, suicidal ideation with SSRIs, self-administration and compliance with medication along with how to safely store medication. Verbal informed consent obtained. Client agrees to return sooner if symptoms worsen or if suicidal or homicidal ideations occur. Client has the phone number to the 24-hour crisis line at [facility]. Questions addressed. Client verbalized understanding of all [...] changes to treatment plan. Plan Of Treatment Medication Medication Name Sig Start Date Stop Date Notes diazePAM 5 MG 1 tablet Orally Three times daily for 30 days 12/10/2024 guanFACINE HCl ER 2 MG 1 tablet at bedti me Orally Once a day for 90 days 01/08/2024 Sertraline HCl 100 MG TAKE 1 AND 1/2 TABLETS BY MOUTH EVERY DAY Once a day for 90 days Lurasidone HCl 60 MG 1 tablet in the evening with food Orally Once a day for 90 days 09/02/2024 Bumping up to 60 mg on dose. Client does not have insurance. May need GoodRx coupon or cheapest dose on lurasidone helpful. Treatment Notes Assessment Notes [place] issues noted. Discussed sleep hygiene and caffeine intake with encouragement to limit electronic devices an hour before bed and to limit caffeine after 3:00pm. Exercise benefits for mood and health discussed. Psychoeducation regarding psychiatric illness provided. Client was educated about risks and benefits of medication, alternatives to medication, off label uses of medication, suicidal ideation with SSRIs, self-administration and compliance with medication along with how to safely store medication. Verbal informed consent obtained. Client agrees to return sooner if symptoms worsen or if suicidal or homicidal ideations occur. Client has the phone number to the 24-hour crisis line at [facility]. Questions addressed. Client verbalized understanding of all information and is agreeable to treatment plan. Next Appt Details Follow Up: 6 Weeks, Reason: Psych F/U - In-Person or Telehealth Progress Notes * Quinn SANCHESLupeOB:1995 (29 yo F)Acc No.[id number]:12/10/2024 Patient: Greyson LANGLEY Provider: Laine Duke DNP, PMHNP-BC :1995 A ge:29 Y S ex:Female Date:12/10/2024 Address:[address] [place], [place] [id number] Pcp:Rosa M Kerr Subjective: * Chief Complaints: * 4 week F/U * HPI: D epression Screening: PHQ-9 L ittle interest or pleasure in doing things S everal days, F eeling down, depressed, or hopeless M ore than half the days, T rouble falling or staying asleep, or sleeping too much S everal days, F eeling tired or having little energy M ore than half the days, P oor appetite or overeating S everal days, F eeling bad about yourself or that you are a failure, or have let yourself or your family down M ore than half the days, T rouble concentrating on things, such as reading the newspaper or watching television M ore than half the days, M oving or speaking so slowly that other people could have noticed; or the opposite, being so fidgety or restless that you have been moving around a lot more than usual S everal days, T houghts that you would be better off or of hurting yourself in some way N ot at all, T otal Score 1 2, I nterpretation M oderate Depression. I ntervention D epression Screening Findings P ositive, F ollow-Up for Depression Patient refused intervention,No Referral necessary, patient involved in behavioral health treatment, S uicide Risk Assessment Performed 0 06/10/2024. S creening: [place] Suicide Severity Rating Scale (LF) D o you want to initiate with S creener form, I nterpretation: L ow Risk, 6 . Suicide Behavior Question: Have you ever done anything,started to do anything, or prepared to end your life? N o, 2. Suicidal Thoughts: Have you actually had any thoughts of killing yourself? N o, 1 . Wish to be : Have you wished you were or wished you could go to sleep and not wake up? N o. C SSRS Interpretation and Follow Up Plan: CSSRS Interpretation and Follow Up Plan C SSRS Screen documented using SF Y es, R isk Disposition from SF M oderate - Follow Up Plan required, F ollow Up Plan M oderate/High: Warm hand off to Behavioral Health Client talked with this provider. Denies plan or intent. Denies crisis intervention. Verified that client has access to crisis phone numbers.. S demarcus: Session conducted telephonically with client's consent. Client pleasant and conversational. HPI: I'm doing a lot better on the Latuda than the Vraylar. But I was without medicine for a week and that wasn't good for me. Greyson Sanches is a 29-year-old female who reports feeling better than before, despite a recent lapse in her medication regimen. She experienced a delay in receiving her Latuda prescription, which led to a period without medication. During this time, she stayed in bed most of the time and missed work on Monday. Greyson has since resumed her medication and feels improved, though she describes feeling out of it as the medication re-enters her system. She is currently working and does not require additional time off. Greyson notes that her mood has been more stable with Latuda, and her coworkers have observed positive changes in her demeanor. However, she still experiences some fluctuations in mood, particularly related to work stress. Her sleep patterns have shifted, with a tendency to oversleep. She states when she started Latuda this was not the case but started more recently. Greyson is considering an increase in her Latuda dosage to address these issues. She also discusses her financial situation, noting that she lost her insurance and is exploring options for coverage. Greyson is interested in potentially adjusting her treatment plan to accommodate her financial constraints, including exploring sliding scale payment options for future appointments. The patient also reported relationship issues with her boyfriend, who spends a lot of time playing video games. She is in a long-term relationship with her boyfriend, but she is not satisfied with their lifestyle, which involves a lot of sitting around, sleeping, and her boyfriend playing video games and smoking marijuana (BF not client). She has expressed a desire to do more activities with her boyfriend, such as going for walks, going to the park, or exercising together. However, her boyfriend is often tired from his job and prefers to play video games. The patient has also expressed difficulty in motivating herself to do things on her own and has mentioned that she doesn't have any friends. She has been taking medication for her mental health issues, but she has not started taking medication for ADHD due to previous negative experiences with an SNRI. States not doing any cannabis. It makes her anxious so has history of not using. Has been taking medications daily. States things at home are okay. Feels BF is supportive . On/off together for 10 years with BF (waxer floor with [employer]). Have discussed DBT and tx options for cluster B traits. Is working on [employer] and continues at same job (14 months now). Hx fall: Spent one day in crisis unit but left AMA before provider could make any adjustments. Client often c/o side effects with any changes to treatment plan and has adherence issues. Client has poor insight into illness and has been very resistant to bipolar dx in past. Client has cycled through countless jobs in the last 2 years, often not keeping one longer than a few weeks to a few months. She is in a relationship with a boyfriend she feels is non-supportive. I have had too much depersonalization to work now. I had a really bad depersonalization moment at [facility] where I couldn't feel my body or talk and ever since then I just haven't been doing great. Nothing really started it or anything. (denies drug use) States that she started having depersonalization at age [age] years old Abuse hx = verbal. No sexual. 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 Client has had many, many jobs over the last 9 months. States things with boyfriend are good and that he is supportive. States he has come around to accepting client needs mental health medications. Prior psychotropic trials: Buspar = body zaps , SSRIs = paradoxical response I felt like I was losing my mind - I tried a bunch of different ones , propranolol = not effective, gabapentin = I felt weird on it, it made me feel high . Elysian = never started due to fear of being on a major medication like that , aripiprazole = didn't like it , Adderall for ADHD symptoms = poor response, venlafaxine = doesn't remember if helpful because was drinking a lot of alcohol, Wellbutrin = it made me feel crazy but states she took with another medication started at same, Vraylar = worked well 4.5 mg but could not continue due to insurance lost. Goals: To keep my current job. Coping strategies: I like to go out in nature. It calms me. Drugs/ETOH use: ETOH: socially, rarely Drugs: Denies Cig/Vape use: LMP: 11/2024 New Medical Issues: Denies Therapy: Was talking with one therapist, who quit [facility]. Assigned another therapist, but fell out of care. Encouraged to set up therapy again. Medications effective: helpful when she takes Medications adherence: Good this month. In past poor - would often forget to take. Sometimes take herself off medications. Medication side effects: denies Sleep: fair Appetite: Normal Anxiety - Fair Depression - fair Irritability: fair Hallucinations/Paranoia: None currently. In past: paranoia at times Suicidal ideation: Denies (hx of in past) Homicidal ideation: Denies Medical concerns or hospitalizations: Denies Any new medications from other providers: Denies. * ROS: P sych ROS: Constitutional D enies, A ll systems negative unless indicated otherwise.,All systems negative unless indicated otherwise.. * PSYCH ROS2: Admits E levated mood symptoms, s ome irritability.?Admits m ood swings. T houghts of self harm D enies. D enies H omicidal thoughts. H yperactivity D enies. I nattention A dmits. B ehavior concerns D enies. D isruptive behavior D enies. O bsessive behavior A dmits. C ompulsive behavior A dmits. P aranoia D enies. D ifficulty concentrating A dmits. A dmits?Anxiety, t hat is moderate . D enies A uditory/visual hallucinations. A dmits Delusions. A dmits D epressed mood, w hich is moderate. D enies D ifficulty sleeping. D enies E ating disorder. D enies L oss of appetite. A dmits S tressors, f inancial , work. D enies S ubstance abuse. D enies S uicidal thoughts. * Medical History: * Surgical History: D enekta Past Surgical History * Hospitalization/Major Diagno stic Procedure: D enekta Past Hospitalization * Family History: F ather: alive, Hypertension. M other: alive, Bipolar. 1 brother(s) , 2 sister(s) - healthy. . * Social History: P rimary Social History: L iving Arrangement L iving Arrangement: I ndependent Living, I s this a supportive environment? Y es. A lcohol Use A lcohol Use Frequency: M onthly or less. I llicit Substance Usage I llicit Substance Usage: N o. E mployment Status E mployment Status: U nemployed. T obacco Use - do not use T obacco Use: Vapes daily. * Medications: T akingOndansetron HCl 4 MG Tablet 1 tablet Orally Once a day As needed for nauseaSertraline HCl 100 MG Tablet TAKE 1 AND 1/2 TABLETS BY MOUTH EVERY DAY Once a day , Notes to Pharmacist: Stopping Vraylar and replacing with generic Latuda. Client lost insurance, cheapest ghosh for luasidone helpful.guanFACINE HCl ER 2 MG Tablet Extended Release 24 Hour 1 tablet at bedtime Orally Once a day , Notes to Pharmacist: Stopping Vraylar and replacing with generic Latuda. Client lost insurance, cheapest ghosh for luasidone helpful.diazePAM 5 MG Tablet 1 tablet Orally Three times daily As needed for severe anxiety/panic attacks, Notes to Pharmacist: Stopping Vraylar and replacing with generic Latuda. Client lost insurance, cheapest ghosh for luasidone helpful.Lurasidone HCl 40 MG Tablet 1 tablet in the evening with food Orally Once a day , Notes to Pharmacist: Stopping Vraylar and replacing with generic Latuda. Client lost insurance, cheapest ghosh for luasidone helpful.Taking Ondansetron HCl 4 MG Tablet 1 tablet Orally Once a day As needed for nauseaTaking Sertraline HCl 100 MG Tablet TAKE 1 AND 1/2 TABLETS BY MOUTH EVERY DAY Once a day , Notes to Pharmacist: Stopping Vraylar and replacing with generic Latuda. Client lost insurance, cheapest ghosh for luasidone helpful.Taking guanFACINE HCl ER 2 MG Tablet Extended Release 24 Hour 1 tablet at bedtime Orally Once a day , Notes to Pharmacist: Stopping Vraylar and replacing with generic Latuda. Client lost insurance, cheapest ghosh for luasidone helpful.Taking diazePAM 5 MG Tablet 1 tablet Orally Three times daily As needed for severe anxiety/panic attacks, Notes to Pharmacist: Stopping Vraylar and replacing with generic Latuda. Client lost insurance, cheapest ghosh for luasidone helpful.Taking Lurasidone HCl 40 MG Tablet 1 tablet in the evening with food Orally Once a day , Notes to Pharmacist: Stopping Vraylar and replacing with generic Latuda. Client lost insurance, cheapest ghosh for luasidone helpful.UnknownSymbicort 80- 4.5 MCG/ACT Aerosol 2 puffs as needed Inhalation Once a day Multivitamin - Tablet 1 tablet Orally Once a day Unknown Symbicort 80-4.5 MCG/ACT Aerosol 2 puffs as needed Inhalation Once a day Unknown Multivitamin - Tablet 1 tablet Orally Once a day * Allergies: N o Known Drug AllergyNo Known Food Allergyno[Allergies Verified] Objective: * Vitals: * Examination: P sychiatry: APPEARANCE: U TA due to telephone session. ATTENTION: good. ORIENTATION: yes. ATTITUDE: c ooperative, pleasant , overwhelmed , negative.? AFFECT: a ppropriate, full range. MOOD: e uthymic to dysthymic. SPEECH: clear, normal/R/V/R. PSYCHOMOTOR ACTIVITY: JONNY. ABNORMAL BODY MOVEMENTS: none per patient's report. CURRENT HOMICIDALITY: none. CURRENT SUICIDALITY: y es. THOUGHT PROCESS: intact. THOUGHT CONTENT: u nremarkable. PERCEPTUAL DISORDERS: + paranoia at times, depersonalization. INSIGHT: f air. JUDGEMENT: f air. Assessment: * Assessment: 1. B ipolar 1 disorder, mixed - F31.60 (Primary) 2 . S ocial anxiety disorder - F40.10 Client overall doing better with change from Vraylar to lurasidone. Some spaced out f/u due to lack of insurance and financial constraints. Client interested in increase in lurasidone due to some rebound symptoms - possibily due to client adjusting to medication. Client agreeable to increase to 60 mg from 40 mg. No other changes to treatment plan. Plan: * Treatment: 2. S ocial anxiety disorder Refill guanFACINE HCl ER Tablet Extended Release 24 Hour, 2 MG, 1 tablet at bedtime, Orally, Once a day, 90 days, 90 Tablet, Refills 0; R efill Sertraline HCl Tablet, 100 MG, TAKE 1 AND 1/2 TABLETS BY MOUTH EVERY DAY, Once a day, 90 days, 135, Refills 0; R efill diazePAM Tablet, 5 MG, 1 tablet, Orally, Three times daily As needed for severe anxiety/panic attacks, 30 days, 90, Refills 2.? 3. O thers Notes[place]. Discussed sleep hygiene and caffeine intake with encouragement to limit electronic devices an hour before bed and to limit caffeine after 3:00pm. Exercise benefits for mood and health discussed. Psychoeducation regarding psychiatric illness provided. Client was educated about risks and benefits of medication, alternatives to medication, off label uses of medication, suicidal ideation with SSRIs, self-administration and compliance with medication along with how to safely store medication. Verbal informed consent obtained. Client agrees to return sooner if symptoms worsen or if suicidal or homicidal ideations occur. Client has the phone number to the 24-hour crisis line at [facility]. Questions addressed. Client verbalized understanding of all information and is agreeable to treatment plan. * Procedure Codes: * Follow Up: 6 Weeks (Reason: Psych F/U - In-Person or Telehealth) * * CEMENTER Sign off status: Completed true * Provider: Laine Duke DNP, PMHNP-BC Date: 0 12/10/2024 Generated for Nba collado/Shirley/Regina on: 0 01/09/2025 05:44 PM CDT History and Physical Notes * HPI (History of Present Illness) Category Sub-Category Detail Notes Category Not es Depression Screening PHQ-9 Little inte rest or pleasure in doing things: Several days Feeling down, depressed, or hopeless: Mo re than half the days Trouble falling or staying asleep, or sl eeping too much: Several days Feeling tired or having little energy: M ore than half the days Poor appetite or overeating: Several day s Feeling bad about yourself o r that you are a failure, or have let yourself or your family down: More than half the days Trouble concentrating on thi ngs, such as reading the newspaper or watching television: More than half the days Moving or speaking so slowly that other people could have noticed; or the opposite, being so fidgety or restless that you have been moving around a lot more than usual: Several days Thoughts that you would be b ava off or of hurting yourself in some way: Not at all Total Score: 12 Interpretation: Moderate Depression Intervention Depression Screening Findings: P ositive Follow-Up for Depression: Rogelio davalos refused intervention,No Referral necessary, patient involved in behavioral health treatment Suicide Risk Assessment Performed: 06/10 Screening [place] Suicide Sev erity Rating Scale (LF) Do you want to initiate with: Screener form Interpretation:: Low Risk 6. Suicide Behavior Question: Have you ever done anything,started to do anything, or prepared to end your life?: No 2. Suicidal Thoughts: Have you actually had any thoughts of killing yourself?: No 1. Wish to be : Have you wished you were or wished you could go to sleep and not wake up?: No CSSRS Interpretation and Follow Up Plan CSSRS Interpretation and Follow Up Plan CSSRS Screen documented using SF: Yes Risk Disposition from SF: Mo derate - Follow Up Plan required Follow Up Plan: Moderate/Hig h: Warm hand off to Behavioral Health Client talked with this provider. Denies plan or intent. Denies crisis intervention. Verified that client has access to crisis phone numbers. Examination Category Sub-Category Detail Notes Category Not es Psychiatry APPEARANCE: JONNY due to telephone session ATTITUDE: cooperative, pleasan t , overwhelmed , negative PSYCHOMOTOR ACTIVITY: JONNY ABNORMAL BODY MOVEMENTS: none per patien t's report ATTENTION: good ORIENTATION: yes AFFECT: appropriate, full ra nge MOOD: euthymic to dysthymi c SPEECH: clear, normal/R/V/R INSIGHT: fair JUDGEMENT: fair THOUGHT PROCESS: intact THOUGHT CONTENT: unremarkable PERCEPTUAL DISORDERS: + paranoia at time s, depersonalization CURRENT SUICIDALITY: yes CURRENT HOMICIDALITY: none
--- OUTSIDE RECORDS SUMMARY | 2025-01-09 17:46 | XMS_ITS | Continuity of Care Document ---
Author Organization [facility] Address [address] [facility] [place] [address] Phone Care Team Providers Care Engine Service Repairer Name Role Phone Pillo Garcia MD Unavailable [...] AGE 18-39 OFFICE/OUTPATIENT VISIT, EST PREV VISIT, [facility], AGE 18-39 Advance Directives Directive Yes / No Effective Date File Name No Information Encounters Encounter Description Practice Location Reason(s) For Visit Diagnoses Date Provider Providers Copied on Encounter [facility], [address], [place], [place], [address], [place] tel:[phone] [facility] No Information 3 Jose Caceres [address], [place], [place], [address] , [place]. tel:[phone] OFFICE/OUTPA TIENT VISIT, EST [facility], [address], [place], [place], [address], [place] tel:[phone] [facility] Medicine sick (chief complaint) scapular pain1 (chief complaint) bipolar1 (chief complaint) Bursitis of right shoulderGeneralized Anxiety DisorderViral infection 2 Jose Caceres [address], [place], [place], [address] , [place]. tel:[phone] PREV VISIT, EST, AGE 18-39 [facility], [address], [place], [place], [address], [place] tel:[phone] [facility] ear pain1 (chief complaint) Encounter for general adult medical examination without abnormal findings 2 Jose Caceres [address], [place], [place], [address] , [place]. tel:[phone] OFFICE/OUTPA TIENT VISIT, EST [facility], [address], [place], [place], [address], [place] tel:[phone] [facility] sob1 (chief complaint) anxiety1 (chief complaint) liver1 (chief complaint) Chest painTachycardiaLive r diseaseConversion disorder 2 Jose Caceres [address], [place], [place], [address] , [place]. tel:[phone] OFFICE/OUTPA TIENT VISIT, [facility], [address], [place], [place], [address], [place] tel:[phone] [facility] abd pain1 (chief complaint) Abdominal painViral infection Sep-2 1 Jose Caceres [address], [place], [place], [address] , [place]. [phone] OFFICE/OUTPA TIENT VISIT, EST [facility], [address] [place], [address], [place] tel:[phone] [facility] hand 1 (chief complaint) leukocytos is1 (chief complaint) LFT (chief complaint) Mononeuropathy of right armLiver diseaseLeukocytosis Family history of endo, nutritional and metabolic diseases February- 1 Jose Caceres [address], [place], [place], [address] , [place]. tel:[phone] OFFICE/OUTPA TIENT VISIT, EST [facility], [address], [place], [place], [address], [place] tel:[phone] [facility] leukocytos is1 (chief complaint) LFT (chief complaint) anxiety1 (chief complaint) ADD (chief complaint) weight gain1 (chief complaint) Liver diseaseLeukocytosis Generalized Anxiety DisorderAttention and concentration deficitFamily history of endo, nutritional and metabolic diseasesAbnormal weight gain Mar- 1 Jose Caceres [address], [place], [place], [address] , [place]. tel:[phone] PREV VISIT, EST, AGE 18-39 [facility], [address] [place], [address], [place] tel:[phone] [facility] physical (chief complaint) Encntr for general adult medical exam w/o abnormal findings Sep-0 0 Jose Caceres [address], [place], [place], [address] , [place]. [phone] PREV VISIT, EST, AGE 18-39 [facility], [address], [place], [place], [address], [place] tel:[phone] [facility] physical (chief complaint) Encntr for general adult medical exam w/o abnormal findings 9 Jose Ferro. [address], [place], [place], [address] , [place]. tel:[phone] Referring Provider: Hansel One[address], [place], [place], [address]. tel:[phone] OFFICE/OUTPA TIENT VISIT, [facility], [address], [place], [place], [address], [place] tel:[phone] [facility] abdominal pain1 (chief complaint) anxiety1 (chief complaint) hair growth1 (chief complaint) skin (chief complaint) Abdominal painGeneralized Anxiety DisorderHirsutismLi danay 8 Jose Ferro. [address], [place], [place], [address] , [place]. tel:[phone] Referring Provider: Hansel One[address], [place], [place], [address]. tel:[phone] OFFICE/OUTPA TIENT VISIT, [facility], [address], [place], [place], [address], [place] tel:[phone] [facility] anxiety1 (chief complaint) libido1 (chief complaint) abd pain1 (chief complaint) cough1 (chief complaint) Pelvic painGERD w/o esophagitisDecrease d libidoGeneralized Anxiety DisorderAcute bronchitis 8 Jose Ferro. [address], [place], [place], [address] , [place]. [phone] Referring Provider: Hansel One[address], [place], [place], [address]. tel:[phone] OFFICE/OUTPA TIENT VISIT, [facility], [address], [place], [place], [address], [place] tel:[phone] [facility] abdominal pain1 (chief complaint) right pelvic pain1 (chief complaint) anxiety1 (chief complaint) Abdominal painPelvic painGeneralized Anxiety DisorderGERD w/o esophagitis 0 8 Jose Caceres [address], [place], [place], [address] , [place]. [phone] Referring Provider: Hansel One[address], [place], [place], [address]. tel:[phone] OFFICE/OUTPA TIENT VISIT, [facility], [address], [place], [place], [address], [place] tel:[phone] [facility] anxiety1 (chief complaint) abdominal pain1 (chief complaint) Abdominal painGeneralized Anxiety Disorder 3 8 Jose Caceres [address], [place], [place], [address] , [place]. [phone] Referring Provider: Hansel One[address], [place], [place], [address]. tel:[phone] OFFICE/OUTPA TIENT VISIT, [facility], [address], [place], [place], [address], [place] tel:[phone] [facility] abd pain1 (chief complaint) pelvic pain1 (chief complaint) anxiety1 (chief complaint) Abdominal painPelvic painGeneralized Anxiety Disorder 8 Jose Caceres [address], [place], [place], [address] , [place]. [phone] Referring Provider: Hansel One[address], [place], [place], [address]. tel:[phone] OFFICE/OUTPA TIENT VISIT, [facility], [address], [place], [place], [address], [place] tel:[phone] [facility] HLP (chief complaint) anxiety1 (chief complaint) ADD (chief complaint) sleep (chief complaint) FatigueHyperlipidem iaGeneralized Anxiety DisorderAttention and concentration deficit 8 Jose Ferro. [address], [place], [place], [address] , [place]. tel:[phone] Referring Provider: Hansel One[address], [place], [place], [address]. tel:[phone] PREV VISIT, EST, AGE 18-39 [facility], [address], [place], [place], [address], [place] tel:[phone] [facility] Medicine PHysical (chief complaint) Body mass index (BMI) 31.0-31.9, adultEncounter for general adult medical exam w abnormal findingsAbnormal weight gainHyperlipidemiaF atigueAttention and concentration deficit Apr-2 6-201 8 Jose Ferro. [address], [place], [place], [address] , [place]. tel:[phone] Referring Provider: Hansel One[address], [place], [place], [address]. tel:[phone] OFFICE/OUTPA TIENT VISIT, EST [facility], [address], [place], [place], [address], [place] [phone] [facility] anxiety1 (chief complaint) Generalized Anxiety DisorderDepression Jan-1 0- 7 Jose Ferro. [address], [place], [place], [address] , [place]. tel:[phone] Referring Provider: Hansel One[address], [place], [place], [address]. tel:[phone] PREV VISIT, EST, AGE 18-39 [facility], [address], [place], [place], [address], [place] [phone] [facility] PHysical (chief complaint) Encounter for general adult medical exam w abnormal findingsDepressionG eneralized Anxiety DisorderLeukorrhea Dec-0 7-201 7 Jose Ferro. [address], [place], [place], [address] , [place]. tel:[phone] Referring Provider: Hansel One[address], [place], [place], [address]. tel:[phone] PREV VISIT, NEW, AGE 18-39 [facility], [address], [place], [place], [address], [place] tel:[phone] [facility] Medicine Physical (chief complaint) Routine Medical ExamRoutine Medical Exam 0201 4 Jose Ferro. [address], [place], [place], [address] , [place]. tel:[phone] Family History Family Member Type Diagnosis Age [...] ordered Referral Referred To: [facility] [address] [facility] [address] [place] [address], [phone] Ordered: Referrals: [facility]. Evaluate and treat [...] states that her mood is stable now sick Pt c/o acute ons et of [...] that she is about 80% better now scapular pain1 Pt c/o persisten t [...] or warmth. Pt rico any bug bite. ear pain1 pt c/o recurrent left ear [...] she had panic attacks. [facility], and [...] malaise. Pt denies any sick contact . LFT Repeat LFT and h epatitis panel normal, Along with ferritin and also ultrasound Pt denies any abd pain or jaundice. leukocytosis1 Leukocytosis res olved. Pt denies any recurrent fever or infection hand 1 Pt c/o acute ons et [...] any radiculopathy symptoms. 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 leukocytosis1 Pt has leukocyto sis. pt denies [...] Pt wants to get valium from me hair growth1 Pt notices exces sive hair under chin recently. Pt notices thinning of hair on her scalp. Pt denies any alopecia. Pt does have regular period. skin Pt notices a sma ll nontender growth posterior neck area for several months Pt denies any pain abdominal pain1 Pt has intermitt ent midepigastric [...] homicidal thought Pt denies any crying spells anxiety1 Pt has chronic a nxiety and [...] ana or any recent travel or bedrest abdominal pain1 Pt c/o chronic m idepigastric [...] pt denies any acute abdominal pain now. right pelvic pain1 Pt c/o right lower pelvic pain for 5 years. Pt has some sharp and dull pain randomly without any trigger factor Pt denies any urinary symptoms pt denies any vaginal bleeding or discharge Pt notices ? worsening pain during her period. 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 Pt has not done pelvic ultrasound yet. Pt denies any risk for STD. Pt did have negative GC/chlamydia testing recently anxiety1 Pt has chronic a nxiety [...] Pt denies any suicidal or homicidal thought anxiety1 Pt has chronic a nxiety and [...] not noticed much difference in midepigastric pain abd pain1 Pt has intermitt ent midabdominal [...] and she feels pain right lower quadrant pelvic pain1 Pt c/o chronic r ight [...] or chills. pt denies any appetite loss. anxiety1 pt has severe an xiety chronically [...] Pt denies any chest pain or palpitation anxiety1 Pt has chronic a nxiety Pt [...] Pt also has palpitation with panic attacks sleep Pt denies any in somnia pt states that she does not snore Pt denies any breathing issue during sleep Pt feels mild fatigue in the morning. Pt states that she wakes up multiple times during the night for unknown reason. insurance denied sleep study. HLP Pt has mild HLP Pt is [...] o Body mass index (BMI) 27.0-27.9, adult Special diet education Related t o Body mass index (BMI) 26.0-26.9, adult Medications as instructed Relate d to Abdominal pain Stop smoking Related to Abdom inal pain Quit smoking Related to Pelvi c pain [...] Fatigue Weight management Related to Fat igue Prescribed dietary intake Relate d to Body mass index (BMI) 31.0-31.9, adult Increase physical activity Relat ed to Encounter for general adult medical exam w abnormal findings Weight management Related to Enc ounter for general adult medical exam w abnormal findings Prescribed Activity and Exercise Education Related to Dietary Surveillance and Counseling Prescribed Diet Educ ation/Lifestyle Education Regarding Diet Related to Dietary Surveillance and Counseling Prescribed Activity and Exercise Education Related to Dietary Surveillance and Counseling Prescribed Diet Educ ation/Lifestyle Education Regarding Diet Related to Dietary Surveillance and Counseling Assessments Type Assessment Date No Information
--- OUTSIDE RECORDS SUMMARY | 2025-01-09 17:46 | XMS_ITS | CONTINUITY OF CARE DOCUMENT ---
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 Open Hearth Stockyard Supervisor Name Role Phone Oswald ROSS, Kavita Unavailable COURTNEY ROSS, NADIR Unavailable [phone] NADIR VALDEZ MD Unavailable [phone] PROBLEMS Condition Status Date Provider Notes Screening active Kavita Akers MD Substernal chest pain active Kavita Akers MD Shortness of breath (SOB) active Kavita goode MD Tachycardia active Kavita Akers MD Syncope active Kavita Akers MD ENCOUNTERS Date Type Provider Location Encounter Diag nosis - In-person encounter Office Visit Kavita Akers MD [facility] - In-person encounter Office Visit Kavita Akers MD [facility] ScreeningSubsternal chest painShortness of breath (SOB)TachycardiaSyncope VITAL SIGNS Date Observation Value Provider Body Mass Index (Ratio) 26.60 kg/m2 Conchita Dunhammeyer blood pressure, diastolic 67 mm[Hg] Li nkLogic blood pressure, systolic 108 mm[Hg] Pinky kLogic blood pressure, diastolic 67 mm[Hg] Sa ra Conde blood pressure, systolic 108 mm[Hg] Miguel Angel a Conde oxygen saturation, oximetry 99 % Kendy Conde respiratory rate E&M 21 /min Kendy Si ms pulse rate 89 /min Kendy Conde weight E&M 155 [lb_av] Kendy Conde blood pressure, cuff size regular Sa ra Conde height E&M 64 [in_i] Kendy Ivins Body Mass Index (Ratio) 26.26 kg/m2 Hina [...] red constitution party ID [place] MEDICAID Medicaid [id number] ADVANCE DIRECTIVES Name Date DISCUSSED - NO DECISION MADE TREATMENT PLAN Date Name Performer [id number],C, N o further episodes of syncope. Nica Teodoro [id number],C, E cho showed normal EF at 60% and no wall motion or valvular abnormalities. Nica Teodoro [id number],C, R esults of PFTs pending. No SOB today Nica Teodoro [id number],C, H olter monitor showed junctional rhythm and narrow complex tachycardia, sinus vs. atrial tachycardia with occasional PVC. Will start her on Cardizem 30 mg once a day. No further episodes of dizziness or syncope. Nica Valerio [id number],C, T he pt denied episodes of passing out but also says as she moves around at home she falls. Kavita Akers MD [id number],C, T he etiology is unclear she was noted to be SOB while talking. We will get a PFT done. Kavita Akers MD [id number],N, H istory of rapid heart rate with dizzness and fainting and possible syncope. Today she is in sinus rhtyhm the EKG does not show any signifcant abnormality we will get a Telecentry monitor to rule out any signifcant arrthymia. Kavita Akers MD [id number],N,W e will get the information from ER. [...] Monitor - Telemetry (Mobile Cardiac) DLCO - 62878 FRC - 18790 FVC - 74347 Complete Echo HISTORY OF PROCEDURES Procedure Date Procedure Name Provider Procedure Notes S tatus EKG Kavita Akers MD complet ed Spirometry Kavita Akers MD complet ed FVC / MVV with bronchodilator - 21979 Kavita Akers MD completed FRC - 60041 Kavita Akers MD comple nithin SpO2 w/o 6min walk/titration Kavita Akers MD completed SVC - 22840 Kavita Akers MD comple nithin DLCO - 60935 Kavita Akers MD compl eted EKG Kavita Akers MD complet ed
[2025-01-09 17:54] VITALS: BP 106/61; PULSE 84; RESP 20; TEMP 36.7; O2SAT 98
--- NOTE | 2025-01-09 18:47 | ED.URI ---
HPI - URI/Sore Throat General Chief Complaint: Upper Respiratory Infection Stated Complaint: flu symptoms Time Seen by Provider: 01/09/25 18:48 Source: patient, RN notes reviewed and old records reviewed Mode of arrival: ambulatory Limitations: no limitations History of Present Illness HPI Narrative: 29 year old female who presents to [facility] care with complaints of cough today with some burning in chest and some tightness in chest with cough. Patient reports that she has had dry throat, headache and body aches for the past 2 days Patient reports that she has been taking DayQuil for her symptoms. MD elicited complaint: cough and other (burning with cough, body aches, dry throat and headache) Onset (ago): day(s) (2) Consistency: constant Severity: mild Able to tolerate fluids by mouth: Yes Treatments prior to arrival: other (DayQuil) Related Data Home Medications ?Medication ?Instructions ?Recorded ?Confirmed ?Last Taken ?Type diazepam 5 mg tablet 5 mg PO DAILY 03/30/22 05/19/23 Unknown History sertraline 50 mg tablet (Zoloft) 50 mg PO DAILY 02/08/23 01/09/25 Unknown History guanfacine 2 mg tablet 2 mg PO DAILY 01/09/25 Unknown History sertraline 100 mg tablet 100 mg PO DAILY 01/09/25 Unknown History Allergies Allergy/AdvReac Type Severity Reaction Status Date / Time No Known Allergies Allergy Verified 01/09/25 18:27 Review of Systems Review of Systems: CONSTITUTIONAL:Reports malaise, no chills, sweats, or fever. EYES: Denies visual changes, redness, or discharge. ENT: Reports rhinorrhea, congestion,no sinus pain, no otalgia and positive sore throat. CARDIOVASCULAR: Denies chest pain, palpitations, or edema. RESPIRATORY: Reports cough.? Denies dyspnea.reports burning in chest and tightness with cough GASTROINTESTINAL: Denies abdominal pain, nausea, vomiting, diarrhea SKIN: Denies rash or itching. MUSCULOSKELETAL:reports myalgia. NEUROLOGIC: Reports headache. 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 There is no relevant family history pertinent to the presenting complaint Exam Narrative: GENERAL: Well-appearing, well-nourished, and in no acute distress. HEAD: Normocephalic EYES: PERRLA, conjunctivae clear ENT: Nares clear, turbinates edematous and erythematous, clear discharge, reports headache,. Mucous membranes moist. TM pearly guerra with dull light reflex bilaterally; no tragal tenderness. Oropharynx erythematous without lesions. Tonsils not enlarged and without exudate, no drooling, no hoarseness, no trismus, uvula midline.post nasal drainage NECK: Supple. No lymphadenopathy CHEST: Clear to auscultation, breath sounds equal. No wheezing, rhonchi, rales, or stridor. No respiratory distress, speaks in full sentences.cough SAO2 98% on room air HEART: Regular rate and rhythm. No murmur heard. SKIN: Warm, dry, no rash. NEURO: Alert and oriented x3. PSYCH: Normal mood and affect Course Course Emergency Course: Patient is aware of diagnosis, understands and agrees to treatment plan.? Anticipatory guidance given.? Patient agrees to follow-up as directed and is aware of reasons to seek care at the emergency department. Portions of this record may have been created with voice recognition software Level of Care: Express Care Visit Vital Signs Vital signs: Vital Signs Temperature 36.7 C 01/09/25 17:54 Pulse Rate 84 01/09/25 17:54 Respiratory Rate 20 01/09/25 17:54 Blood Pressure 106/61 01/09/25 17:54 Pulse Oximetry 98 01/09/25 17:54 Oxygen Delivery Room Air 01/09/25 17:54 Temperature 36.7 C 01/09/25 17:54 Pulse Rate 84 01/09/25 17:54 Respiratory Rate 20 01/09/25 17:54 Blood Pressure 106/61 01/09/25 17:54 Pulse Oximetry 98 01/09/25 17:54 Oxygen Delivery Room Air 01/09/25 17:54 Reviewed MDM - URI/Sore Throat MDM Narrative Medical decision making narrative: Differential diagnosis considered: Kahn virus, strep pharyngitis, allergic rhinitis, upper respiratory tract infection, sinusitis, rhinosinusitis, nasopharyngitis. viral pharyngitis, otitis media, otitis externa, pneumonia, bronchitis, viral cough syndrome, viral syndrome, and influenza.? Exam findings show no acute concerns or changes; patient is non-toxic appearing and is in no distress.? Patient is appropriate for outpatient treatment and follow-up. Differential Diagnosis Differential diagnosis: Likely upper respiratory infection, viral infection, influenza, pharyngitis and other (COVID, GERD, cough) Medical Records Attestation: I reviewed the patient's medical records. Lab Data Attestation: I reviewed the patient's lab results. Lab results narrative: influenza A negative, Influenza B negative, COVID antigen negative, strep screen negative, strep culture sent Labs: Lab Results 01/09/25 Range/Units 18:00 POC Influenza A Ag Negative (Negative) POC Influenza B Ag Negative (Negative) POC SARS CoV-2 Ag Negative (Negative) POC Grp A Strep Screen Negative (Negative) reviewed Critical Care Time Critical Care Time Critical Care Time: No Discharge Plan Discharge Clinical Impression: Hx of gastroesophageal reflux (GERD) Cough Qualifiers: Cough type: acute Qualified Code(s): R05.1 - Acute cough Upper respiratory infection Qualifiers: URI type: unspecified URI Qualified Code(s): J06.9 - Acute upper respiratory infection, unspecified Patient Disposition: Home, Self-Care Condition: Stable Instructions: Antibiotic Form, Acute Cough (ED), GERD (Gastroesophageal Reflux Disease) (ED) Additional Instructions: Increase fluids especially juices and water [id number] cough and cold medicine of your choice for your symptoms Prilosec daily for acid reflux Cough tablets as directed for cough--do not bite, chew or suck on--swallow whole Zyrtec Claritin or Delmy daily heat to the face 20-30 minutes 4-6 times a day for pain Salt water gargles, throat lozenges or throat sprays as desired Tylenol or ibuprofen for any fever pain If your symptoms persist, change or worsen significantly before you can contact your personal physician then please, without delay, go to the emergency department for further evaluation. Follow-up with PCP in 7-10 days or sooner if needed Patient Language: Persian Prescriptions: New omeprazole magnesium [Prilosec OTC] 20 mg tablet,delayed release (DR/EC) 20 mg PO DAILY Qty: 30 0RF benzonatate 200 mg capsule 200 mg PO TID PRN (Reason: cough) Qty: 20 0RF No Action guanfacine 2 mg tablet 2 mg PO DAILY sertraline 100 mg tablet 100 mg PO DAILY diazepam 5 mg tablet 5 mg PO DAILY sertraline [Zoloft] 50 mg tablet 50 mg PO DAILY Follow-up/Referrals: PHYSICIAN,UMBRELLA CUTTER [Primary Care Provider] - Stand Alone Forms: Work/School Release IP Time of Disposition: 19:17 Quality [place] Coma Scale Eyes: Open Verbal: Oriented and Alert Motor: Follows Commands [place] Coma Total Score: 15
[2025-01-09 18:59] LABS: EDCOVIDSCREEN Negative (Negative); EDINFLUASCREEN Negative (Negative); EDINFLUBSCREEN Negative (Negative); EDSTREPNEGPOS1 Negative (Negative)
== END 2025-01-09 19:25 | disposition home or self-care (01) ==
PROVIDERS: Emergency Provider Registered Nurse
DX: K21.9 Gastro-esophageal reflux disease without esophagitis (principal); R05.1 Acute cough; J06.9 Acute upper respiratory infection, unspecified; Z20.822 Contact with and (suspected) exposure to COVID-19; F17.210 Nicotine dependence, cigarettes, uncomplicated; F17.290 Nicotine dependence, other tobacco product, uncomplicated; F41.9 Anxiety disorder, unspecified
CPT/HCPCS: 87081; 87426; 87804; 87880; 99213; G0463

== ENCOUNTER 2025-02-17 15:08 | Emergency (ER) | payer SELFPAY ==
[2025-02-17 15:15] VITALS: BP 111/60; PULSE 83; RESP 16; TEMP 36.6; O2SAT 99
--- NOTE | 2025-02-17 15:17 | ED_ITS ---
HPI - Ear Problem General Chief complaint: Ear Stated complaint: lt earache Source: patient Mode of arrival: ambulatory Limitations: no limitations History of Present Illness HPI Narrative: 29 y/o female presented for c/o left ear pain. Onset 2 days. Endorses it started as itching then developed sharp pains and decreased hearing. Denies tinnitus, dizziness, nasal congestion, fever. Took ibuprofen. MD Complaint: ear pain Related Data Home Medications ?Medication ?Instructions ?Recorded ?Confirmed ?Last Taken ?Type diazepam 5 mg tablet 5 mg PO DAILY 03/30/22 05/19/23 Unknown History guanfacine 2 mg tablet 2 mg PO DAILY 01/09/25 Unknown History sertraline 100 mg tablet 100 mg PO DAILY 01/09/25 Unknown History lurasidone .ROUTE 02/17/25 02/17/25 History Allergies Allergy/AdvReac Type Severity Reaction Status Date / Time No Known Allergies Allergy Verified 02/17/25 15:17 Review of Systems Review of Systems: CONSTITUTIONAL: Denies malaise, chills, or fever. EYES: Denies visual changes, redness, or discharge. ENT: Denies rhinorrhea, congestion, sinus pain, and sore throat. Reports ear pain CARDIOVASCULAR: Denies chest pain, palpitations, or edema. RESPIRATORY: Denies cough or dyspnea. GASTROINTESTINAL: Denies abdominal pain, nausea, vomiting, diarrhea SKIN: Denies rash or itching. MUSCULOSKELETAL: Denies myalgia. NEUROLOGIC: Denies headache. 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 There is no relevant family history pertinent to the presenting complaint Exam Narrative: GENERAL: Well-appearing EYES: conjunctivae clear ENT: Nares clear. Mucous membranes moist. Left TM erythematous, bulging and intact; canal not erythematous, no drainage, no tragal tenderness. Oropharynx not erythematous without lesions. no drooling, no hoarseness, no trismus, uvula midline. NECK: Supple. No lymphadenopathy CHEST: Clear to auscultation, breath sounds equal. No wheezing, rhonchi, rales, or stridor. No respiratory distress, speaks in full sentences. HEART: Regular rate and rhythm. No murmur heard. SKIN: Warm, dry, no rash. NEURO: Alert and oriented x3. PSYCH: Normal mood and affect Course Course Emergency Course: Patient is aware of diagnosis, understands and agrees to treatment plan. Anticipatory guidance given. Patient agrees to follow-up as directed and is aware of reasons to seek care at the emergency department. Portions of this record may have been created with voice recognition software Level of Care: Express Care Visit Vital Signs Vital signs: Reviewed Medical Decision Making MDM Narrative Medical decision making narrative: Discussed physical exam findings consistent with Left AOM. Advised supportive measures and signs/symptoms to go to the ER. Patient is appropriate for outpatient treatment and follow-up. Differential Diagnosis Differential Diagnosis: Coronavirus, strep pharyngitis, allergic rhinitis, upper respiratory tract infection, sinusitis, rhinosinusitis, nasopharyngitis, viral pharyngitis, otitis media, otitis externa, eustachian tube dysfunction, foreign body, cerumen impaction. Discharge Plan Discharge Clinical Impression: Otitis media Patient Disposition: Home Condition: Stable Instructions: Antibiotic Form, Ear Infection (ED) Additional Instructions: Take antibiotics as directed. Recommendations: antihistamine such as Benadryl, Zyrtec or Delmy Flonase nasal spray, 1 spray in each nostril once daily until symptoms improve Symptomatic treatment includes: rest, fluids, and increase humidity of the air at home. Tylenol and ibuprofen every 8 hours as needed to reduce fever, pain Please schedule a follow-up visit with your personal physician If your symptoms persist, change or worsen significantly, go to the emergency department for further evaluation. Patient Language: Faroese Prescriptions: New amoxicillin-pot clavulanate 875-125 mg tablet 1 tablet PO Q12H 7 Days Qty: 14 0RF No Action guanfacine 2 mg tablet 2 mg PO DAILY sertraline 100 mg tablet 100 mg PO DAILY lurasidone [Latuda] .ROUTE diazepam 5 mg tablet 5 mg PO DAILY Follow-up/Referrals: PHYSICIAN,EXPRESSIVE THERAPIST [Primary Care Provider] - Stand Alone Forms: Work/School Release IP Time of Disposition: 15:25
--- OUTSIDE RECORDS SUMMARY | 2025-02-17 15:49 | XMS_ITS | Clinical Summary ---
Author Organization [facility] Address [address] [place] [address] Phone Care Team Providers Care Fudge Candy Maker Name Role Phone Provider, None Primary Care [...] this topic Insurance MEDICAID [place] Care Teams Fudge Candy Maker Relationship Specialty Start Date End Date Provider, None [place] PCP - General 06/04/24
--- OUTSIDE RECORDS SUMMARY | 2025-02-17 15:49 | XMS_ITS | Patient Health Record ---
Author Organization [facility] Address [address] [place] [address] Care Team Providers Care Rn Security Name Role Phone Rosa M Kerr Primary Care Provider [phone] Dipesh Duke Unavailable [phone] Dian Esquivel Unavailable [phone] Allergies Allergen (clinical drug ingredient) Drug/Non Drug [...] Active confirmed Problem Attention deficit hyperactivity disorder (436345513) ADHD (attention deficit hyperactivity disorder) (F90.9) Active confirmed R/O versus comorbid with Bipolar Problem Social anxiety disorder (88859731) Social anxiety disorder (F40.10) Active confirmed Problem Asthma (802949909) Asthma (J45.909) Active confirmed Problem Panic disorder (430108966) Panic disorder (F41.0) Active confirmed Problem [id number] Obesity (BMI 30.0-34.9) (E66.9) Active confirmed Problem Mixed bipolar I disorder (39665561) Bipolar 1 disorder, mixed (F31.60) Active confirmed Problem 32442432 Post traumatic stress disorder (PTSD) (F43.10) Active confirmed Problem Poor concentration (finding) (35820369) Concentration deficit (R41.840) Active confirmed Problem 84661516 Nicotine dependence, uncomplicated, unspecified nicotine product type (F17.200) Active confirmed Problem Bipolar II disorder (31867582) Bipolar II disorder major depressive with melancholic features (F31.81) Inactive differential Encounters Encounter Location Date Provider Diagnosis [address] [address] 04/17/2024 Dipesh Duke Bipolar 1 disorder, mixed F31.60 ; Post traumatic stress disorder (PTSD) F43.10 ; Social anxiety disorder F40.10 ; Panic disorder F41.0 and ADHD (attention deficit hyperactivity disorder) F90.[address] [address] 06/10/2024 Dipesh Duke Bipolar 1 disorder, mixed F31.60 ; Borderline personality disorder F60.3 ; Post traumatic stress disorder (PTSD) F43.10 and Social anxiety disorder F40.[address] [place] [address] 09/02/2024 Dipesh Duke Bipolar 1 disorder, mixed F31.60 ; Borderline personality disorder F60.3 ; Post traumatic stress disorder (PTSD) F43.10 ; Social anxiety disorder F40.10 and Panic disorder F41.[address] [address] 12/10/2024 Dipesh Duke Bipolar 1 disorder, mixed F31.60 and Social anxiety disorder F40.[address] [address] 04/09/2024 Dipesh Duke Social anxiety disorder F40.10 ; Bipolar 1 disorder, mixed F31.60 and ADHD (attention deficit hyperactivity disorder) F90.9 [facility] [address], [place] [address] 11/29/2024 Dian Esquivel Social anxiety disorder F40.10 and Bipolar 1 disorder, mixed F31.[address] [address] 12/05/2024 Dipesh Duke Bipolar 1 disorder, mixed F31.[address] [address] 12/11/2024 Dipesh Duke [address] [address] 01/10/2025 Dipesh Duke Assessments Encounter Date Diagnosis (ICD Code) Assessment Notes Treatment Notes Treatment Clinical Notes Section Notes 04/09/2024 Social anxiety disorder (ICD-10 - F40.10) [...] of insurance. Will see if helpful for depression/anx iety. Discussed lifestyle changes (exercise, healthy eating, hobbies, [...] of insurance. Will see if helpful for depression/anx iety. Discussed lifestyle changes (exercise, healthy eating, hobbies, [...] Bipolar 1 disorder, mixed (ICD-10 - F31.60) 04/09/2024 ADHD (attention deficit hyperactivity disorder) (ICD-10 [...] of insurance. Will see if helpful for depression/anx iety. Discussed lifestyle changes (exercise, healthy eating, hobbies, pursuing GED) to help with depression. 09/02/2024 Social anxiety disorder (ICD-10 - F40.10) Client agreeable to switch to generic Latuda due to loss of insurance. Will see if helpful for depression/anx iety. Discussed lifestyle changes (exercise, healthy eating, hobbies, [...] to aide with depressive symptoms as well. 04/17/2024 ADHD (attention deficit hyperactivity disorder) (ICD-10 [...] of insurance. Will see if helpful for depression/anx iety. Discussed lifestyle changes (exercise, healthy eating, hobbies, pursuing GED) to help with depression. [place]2024 [place] [...] number to the 24-hour crisis line at [facility]. Questions addressed. Client verbalized understanding of all [...] number to the 24-hour crisis line at [facility]. Questions addressed. Client verbalized understanding of all [...] number to the 24-hour crisis line at [facility]. Questions addressed. Client verbalized understanding of all information and is agreeable to treatment plan. Client agreeable to switch to generic Latuda due to loss of insurance. Will see if helpful for depression/anx iety. Discussed lifestyle changes (exercise, healthy eating, hobbies, [...] number to the 24-hour crisis line at [facility]. Questions addressed. Client verbalized understanding of all [...] Insured Coverage Start Date Coverage End Date [employer] [address] [place] [address] [id number] [employer] Self - patient is the insured 7 4 [id number] [address] [place] [address] [id number] Dane Greyson Self - patient is the insured 1 4 Medical (General) History Medical History History ICD Code Attention deficit hyperactiv ity disorder (ADHD), predominantly inattentive type F90.0 Bipolar II disorder F31.81 Surgical History Surgery Date(Month/Year) Hospitalization History Reason Date(Month/Year)
--- OUTSIDE RECORDS SUMMARY | 2025-02-17 15:49 | XMS_ITS | Continuity of Care Document ---
Author Organization [facility] Address [address] [facility] [place] [address] Phone Care Team Providers Care Cartoon Artist Name Role Phone Pillo Garcia MD Unavailable [...] AGE 18-39 OFFICE/OUTPATIENT VISIT, EST PREV VISIT, [facility], AGE 18-39 Advance Directives Directive Yes / No Effective Date File Name No Information Encounters Encounter Description Practice Location Reason(s) For Visit Diagnoses Date Provider Providers Copied on Encounter [facility] [address], [place], [place], [address], [place] tel:[phone] [facility] No Information 3 Jose Caceres [address], [place], [place], [address] , [place]. tel:[phone] OFFICE/OUTPA TIENT VISIT, EST [facility], [address], [place], [place], [address], [place] tel:[phone] [facility] sick (chief complaint) scapular pain1 (chief complaint) bipolar1 (chief complaint) Bursitis of right shoulderGeneralized Anxiety DisorderViral infection 2 Jose Caceres [address], [place], [place], [address] , [place]. tel:[phone] PREV VISIT, EST, AGE 18-39 [facility] ([place], [address], [place], [place], [address], [place] tel:[phone] [facility] ear pain1 (chief complaint) Encounter for general adult medical examination without abnormal findings 2 Jose Caceres [address], [place], [place], [address] , [place]. tel:[phone] OFFICE/OUTPA TIENT VISIT, EST [facility] ([place], [address], [place], [place], [address], [place] tel:[phone] [facility] sob1 (chief complaint) anxiety1 (chief complaint) liver1 (chief complaint) Chest painTachycardiaLive r diseaseConversion disorder 2 Jose Caceres [address], [place], [place], [address] , [place]. tel:[phone] OFFICE/OUTPA TIENT VISIT, [facility], [address], [place], [place], [address], [place] tel:[phone] [facility] abd pain1 (chief complaint) Abdominal painViral infection Sep-2 1 Jose Caceres [address], [place], [place], [address] , [place]. [phone] OFFICE/OUTPA TIENT VISIT, EST [facility] ([facility], [address] [place], [address], [place] tel:[phone] [facility] hand 1 (chief complaint) leukocytos is1 (chief complaint) LFT (chief complaint) Mononeuropathy of right armLiver diseaseLeukocytosis Family history of endo, nutritional and metabolic diseases February- 1 Jose Caceres [address], [place], [place], [address] , [place]. tel:[phone] OFFICE/OUTPA TIENT VISIT, EST [facility] ([facility], [address], [place], [place], [address], [place] tel:[phone] [facility] leukocytos is1 (chief complaint) LFT (chief complaint) anxiety1 (chief complaint) ADD (chief complaint) weight gain1 (chief complaint) Liver diseaseLeukocytosis Generalized Anxiety DisorderAttention and concentration deficitFamily history of endo, nutritional and metabolic diseasesAbnormal weight gain Mar- 1 Jose Caceres [address], [place], [place], [address] , [place]. tel:[phone] PREV VISIT, EST, AGE 18-39 [facility] ([facility], [address] [place], [address], [place] tel:[phone] [facility] physical (chief complaint) Encntr for general adult medical exam w/o abnormal findings Sep-0 0 Jose Caceres [address], [place], [place], [address] , [place]. [phone] PREV VISIT, EST, AGE 18-39 [facility] ([facility], [address], [place], [place], [address], [place] tel:[phone] [facility] physical (chief complaint) Encntr for general adult medical exam w/o abnormal findings 9 Jose Ferro. [address], [place], [place], [address] , [place]. tel:[phone] Referring Provider: Hansel One[address], [place], [place], [address]. tel:[phone] OFFICE/OUTPA TIENT VISIT, [facility], [address], [place], [place], [address], [place] tel:[phone] [facility] abdominal pain1 (chief complaint) anxiety1 (chief complaint) hair growth1 (chief complaint) skin (chief complaint) Abdominal painGeneralized Anxiety DisorderHirsutismLi danay 8 Jose Ferro. [address], [place], [place], [address] , [place]. tel:[phone] Referring Provider: Hansel One[address], [place], [place], [address]. tel:[phone] OFFICE/OUTPA TIENT VISIT, [facility], [address], [place], [place], [address], [place] tel:[phone] [facility] anxiety1 (chief complaint) libido1 (chief complaint) abd pain1 (chief complaint) cough1 (chief complaint) Pelvic painGERD w/o esophagitisDecrease d libidoGeneralized Anxiety DisorderAcute bronchitis 8 Jose Ferro. [address], [place], [place], [address] , [place]. [phone] Referring Provider: Hansel One[address], [place], [place], [address]. tel:[phone] OFFICE/OUTPA TIENT VISIT, [facility], [address], [place], [place], [address], [place] tel:[phone] [facility] abdominal pain1 (chief complaint) right pelvic pain1 (chief complaint) anxiety1 (chief complaint) Abdominal painPelvic painGeneralized Anxiety DisorderGERD w/o esophagitis 0 8 Jose Caceres [address], [place], [place], [address] , [place]. [phone] Referring Provider: Hansel Oneill [address], [place], [place], [address]. tel:[phone] OFFICE/OUTPA TIENT VISIT, [facility], [address], [place], [place], [address], [place] tel:[phone] [facility] anxiety1 (chief complaint) abdominal pain1 (chief complaint) Abdominal painGeneralized Anxiety Disorder 3 8 Jose Caceres [address], [place], [place], [address] , [place]. [phone] Referring Provider: Hansel Oneill [address], [place], [place], [address]. tel:[phone] OFFICE/OUTPA TIENT VISIT, [facility], [address], [place], [place], [address], [place] tel:[phone] [facility] abd pain1 (chief complaint) pelvic pain1 (chief complaint) anxiety1 (chief complaint) Abdominal painPelvic painGeneralized Anxiety Disorder 8 Jose Caceres [address], [place], [place], [address] , [place]. [phone] Referring Provider: Hansel Oneill [address], [place], [address]. tel:[phone] OFFICE/OUTPA TIENT VISIT, [facility], [address], [place], [place], [address], [place] tel:[phone] [facility] HLP (chief complaint) anxiety1 (chief complaint) ADD (chief complaint) sleep (chief complaint) FatigueHyperlipidem iaGeneralized Anxiety DisorderAttention and concentration deficit 8 Jose Ferro. [address], [place], [place], [address] , [place]. tel:[phone] Referring Provider: Hansel Oneill [address], [place], [place], [address]. tel:[phone] PREV VISIT, EST, AGE 18-39 [facility], [address], [place], [place], [address], [place] tel:[phone] [facility] PHysical (chief complaint) Body mass index (BMI) 31.0-31.9, adultEncounter for general adult medical exam w abnormal findingsAbnormal weight gainHyperlipidemiaF atigueAttention and concentration deficit Apr-2 6-201 8 Jose Ferro. [address], [place], [place], [address] , [place]. tel:[phone] Referring Provider: Hansel Oneill [address], [place], [place], [address]. tel:[phone] OFFICE/OUTPA TIENT VISIT, EST [facility], [address], [place], [place], [address], [place] [phone] [facility] anxiety1 (chief complaint) Generalized Anxiety DisorderDepression Jan-1 0- 7 Jose Ferro. [address], [place], [place], [address] , [place]. tel:[phone] Referring Provider: Hansel Oneill [address], [place], [place], [address]. tel:[phone] PREV VISIT, EST, AGE 18-39 [facility], [address], [place], [place], [address], [place] [phone] [facility] PHysical (chief complaint) Encounter for general adult medical exam w abnormal findingsDepressionG eneralized Anxiety DisorderLeukorrhea Dec-0 7-201 7 Jose Ferro. [address], [place], [place], [address] , [place]. tel:[phone] Referring Provider: Hansel Oneill [address], [place], [place], [address]. tel:[phone] PREV VISIT, NEW, AGE 18-39 [facility], [address], [place], [place], [address], [place] tel:[phone] [facility] Physical (chief complaint) Routine Medical ExamRoutine Medical Exam 0201 4 Jose Ferro. [address], [place], [place], [address] , [place]. tel:[phone] Family History Family Member Type Diagnosis Age At Onset Mother Problem (finding) Alive and well Brother Problem (finding) Alive and well Father Problem (finding) Alive and well Mother Problem (finding) Thyroid disorder Payers Payer name Insurance type Covered libertarian ID Authoriza tion(s) No Information Social History [...] ordered Referral Referred To: Man Smith [address] [facility] [address] [place] [address], [phone] Ordered: Referrals: Man Smith. Evaluate and treat [...] Date Complaint History Of Prese nt Illness scapular pain1 Pt c/o persisten t sharp [...] that she is about 80% better now bipolar1 Pt has chronic b ipolar and depression Pt takes zoloft and vraylar now and she is off lamictal. Pt sees psychiatrist Pt denies any suicidal or homicidal thought pt denies any crying spells Pt states that her mood is stable now ear pain1 pt c/o recurrent left [...] she had panic attacks. Pt transfer to [facility] ER and had normal EKG, and [...] malaise. Pt denies any sick contact . leukocytosis1 Leukocytosis res olved. Pt denies any recurrent fever or infection LFT Repeat LFT and h epatitis panel normal, Along with ferritin and also ultrasound Pt denies any abd pain or jaundice. hand 1 Pt c/o acute ons et [...] any radiculopathy symptoms. 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 weight gain1 Pt has been gain ing weight. Pt is not very active. Pt is not on any diet ADD Pt has ADD ,Pt d oing ok with adderall. Pt doing ok anxiety1 Pt has chronic a nxiety and depression. Pt takes effexor and valium and doing ok Pt sees psychiatrist pt denies any suicidal or homicidal thought Pt denies any crying spells. Pt is off abilify LFT Pt has borderlin e high LFT Pt denies any abd pain or jaundice Pt rarely drinks alcohol leukocytosis1 Pt has leukocyto sis. pt denies any fever or any illness . physical Pt needs annual physical Pt feels [...] denies any GERD. Pt had colonoscopy recently skin Pt notices a sma ll nontender [...] pain during her period. Pt never seen calciner operator. Pt has not done pelvic ultrasound [...] and she feels pain right lower quadrant HLP Pt has mild HLP Pt is trying low fat and low carb diet ADD Pt states that a dderall did help her with focus but made her more anxious sleep Pt denies any in somnia pt [...] Pt also has palpitation with panic attacks PHysical pt needs annual physical. Pt states [...] Quit smoking Related to Pelvi c pain Weight management Related to Pel shanta pain Avoid provocative fo ods: citrus, alcohol, coffee, chocolate, mints. Related to GERD w/o esophagitis Eat smaller meals, n o eating three hours prior to bedtime. Related to GERD w/o esophagitis Elevate head of bed prior to sle ep. Related to GERD w/o esophagitis Stop smoking Related to Abdom inal pain Stop smoking Related to Abdom inal pain Stop smoking Related to Abdom inal pain Special diet education Related t o Body mass index (BMI) 31.0-31.9, adult Weight management Related to Fat igue Increase physical activity Relat ed to Fatigue Prescribed dietary intake Relate d to Body [...]
--- OUTSIDE RECORDS SUMMARY | 2025-02-17 15:49 | XMS_ITS | CONTINUITY OF CARE DOCUMENT ---
Author Name justin anderson Address Unknown Organization [facility] Address [address] [facility] [address] [place] [address] Phone [phone] Care Team Providers Care Profile Trimmer Name Role Phone Oswald ROSS, Kavita Unavailable COURTNEY ROSS, NADIR Unavailable [phone] NADIR VALDEZ MD Unavailable [phone] PROBLEMS Condition Status Date Provider Notes Screening active Kavita Akers MD Substernal chest pain active Kavita Akers MD Shortness of breath (SOB) active Kavita goode MD Tachycardia active Kavita Akers MD Syncope active Kavita Akers MD ENCOUNTERS Date Type Provider Location Encounter Diag nosis - In-person encounter Office Visit Kavita Akers MD [place] [facility] - In-person encounter Office Visit Kavita Akers MD [place] [facility] ScreeningSubsternal chest painShortness of breath (SOB)TachycardiaSyncope [...] ra Conde height E&M 64 [in_i] Kendy Henning Body Mass Index (Ratio) 26.26 kg/m2 Hina [...] Policy type / Coverage type Renea red alliance party ID [place] MEDICA[place] Medicaid [id number] ADVANCE DIRECTIVES Name Date DISCUSSED - NO DECISION MADE TREATMENT PLAN Date Name Performer [id number],C, N o further episodes of syncope. Nica Teodoro [id number],C, E cho showed normal EF at 60% and no wall motion or valvular abnormalities. Nica Teodoro [id number],C, R esults of PFTs pending. No SOB today Nica Teodoro [id number],C, H olter monitor showed junctional rhythm and narrow complex tachycardia, sinus vs. atrial tachycardia with occasional PVC. Will start her on Cardizem 30 mg once a day. No further episodes of dizziness or syncope. Nica Valerio [id number],C, T he pt denied episodes of passing out but also says as she moves around at home she falls. Kavita Akers MD [id number],C, T he etiology is unclear she was noted to be SOB while talking. We will get a PFT done. Kavita Akers MD [id number],N, H istory of rapid heart rate with dizzness and fainting and possible syncope. Today she is in sinus rhtyhm the EKG does not show any signifcant abnormality we will get a Telecentry monitor to rule out any signifcant arrthymia. Kavita Akers MD [id number],N,W e will get the information from ER. [...] Monitor - Telemetry (Mobile Cardiac) DLCO - 65474 FRC - 57702 FVC - 74802 Complete Echo HISTORY OF PROCEDURES Procedure Date Procedure Name Provider Procedure Notes S tatus EKG Kavita Akers MD complet ed Spirometry Kavita Akers MD complet ed FVC / MVV with bronchodilator - 85939 Kavita Akers MD completed FRC - 97943 Kavita Akers MD comple nithin SpO2 w/o 6min walk/titration Kavita Akers MD completed SVC - 82152 Kavita Akers MD comple nithin DLCO - 66398 Kavita Akers MD compl eted EKG Kavita Akers MD complet ed
--- OUTSIDE RECORDS SUMMARY | 2025-02-17 15:50 | XMS_ITS | Continuity of Care Document ---
Author Organization [facility] Address [address] [facility] [place] [address] Phone Care Team Providers Care Threshing Machine Operator Name Role Phone Pillo Garcia MD Unavailable [...] AGE 18-39 OFFICE/OUTPATIENT VISIT, EST PREV VISIT, BANNER, AGE 18-39 Advance Directives Directive Yes / No Effective Date File Name No Information Encounters Encounter Description Practice Location Reason(s) For Visit Diagnoses Date Provider Providers Copied on Encounter [facility], [address], [place], [place], [address], [place] tel:[phone] [facility] No Information 3 Jose Caceres [address], [place], [place], [address] , [place]. tel:[phone] OFFICE/OUTPA TIENT VISIT, EST [facility], [address], [place], [place], [address], [place] tel:[phone] [facility] Medicine sick (chief complaint) scapular pain1 (chief complaint) bipolar1 (chief complaint) Bursitis of right shoulderGeneralized Anxiety DisorderViral infection 2 Jose Caceres [address], [address], [place], [place], [address] , [place]. tel:[phone] PREV VISIT, EST, AGE 18-39 [facility], [address], [place], [place], [address], [place] tel:[phone] [facility] ear pain1 (chief complaint) Encounter for general adult medical examination without abnormal findings 2 Jose Caceres [address], [address], [place], [place], [address] , [place]. tel:[phone] OFFICE/OUTPA TIENT VISIT, EST [facility], [address], [place], [place], [address], [place] tel:[phone] [facility] sob1 (chief complaint) anxiety1 (chief complaint) liver1 (chief complaint) Chest painTachycardiaLive r diseaseConversion disorder 2 Jose Caceres [address], [place], [place], [address] , [place]. tel:[phone] OFFICE/OUTPA TIENT VISIT, [facility], [address], [place], [place], [address], [place] tel:[phone] [facility] abd pain1 (chief complaint) Abdominal painViral infection Sep-2 1 Jose Caceres [address], [place], [place], [address] , [place]. [phone] OFFICE/OUTPA TIENT VISIT, EST [facility], [address] [place], [address], [place] tel:[phone] [facility] hand 1 (chief complaint) leukocytos is1 (chief complaint) LFT (chief complaint) Mononeuropathy of right armLiver diseaseLeukocytosis Family history of endo, nutritional and metabolic diseases February- 1 Jose Caceres [address], [place], [place], [address] , [place]. [phone] OFFICE/OUTPA TIENT VISIT, EST [facility], [address], [place], [place], [address], [place] tel:[phone] [facility] leukocytos is1 (chief complaint) LFT (chief complaint) anxiety1 (chief complaint) ADD (chief complaint) weight gain1 (chief complaint) Liver diseaseLeukocytosis Generalized Anxiety DisorderAttention and concentration deficitFamily history of endo, nutritional and metabolic diseasesAbnormal weight gain Mar- 1 Jose Caceres [address], [address], [place], [place], [address] , [place]. tel:[phone] PREV VISIT, EST, AGE 18-39 [facility], [address] [place], [address], [place] tel:[phone] [facility] physical (chief complaint) Encntr for general adult medical exam w/o abnormal findings Sep-0 0 Jose Caceres [address], [place], [place], [address] , [place]. [phone] PREV VISIT, EST, AGE 18-39 [facility], [address], [place], [place], [address], [place] tel:[phone] [facility] physical (chief complaint) Encntr for general adult medical exam w/o abnormal findings 9 Jose Ferro. [address], [address], [place], [place], [address] , [place]. tel:[phone] Referring Provider: Hansel Oneill [address], [place], [place], [address]. tel:[phone] OFFICE/OUTPA TIENT VISIT, [facility], [address], [place], [place], [address], [place] tel:[phone] [facility] abdominal pain1 (chief complaint) anxiety1 (chief complaint) hair growth1 (chief complaint) skin (chief complaint) Abdominal painGeneralized Anxiety DisorderHirsutismLi danay 8 Jose Ferro. [address], [place], [place], [address] , [place]. tel:[phone] Referring Provider: Hansel One[address], [place], [place], [address]. tel:[phone] OFFICE/OUTPA TIENT VISIT, [facility], [address], [place], [place], [address], [place] tel:[phone] [facility] anxiety1 (chief complaint) libido1 (chief complaint) abd pain1 (chief complaint) cough1 (chief complaint) Pelvic painGERD w/o esophagitisDecrease d libidoGeneralized Anxiety DisorderAcute bronchitis 8 Jose Ferro. [address], [place], [place], [address] , [place]. [phone] Referring Provider: Hansel Oneill [address], [place], [place], [address]. tel:[phone] OFFICE/OUTPA TIENT VISIT, [facility], [address], [place], [place], [address], [place] tel:[phone] [facility] abdominal pain1 (chief complaint) right pelvic pain1 (chief complaint) anxiety1 (chief complaint) Abdominal painPelvic painGeneralized Anxiety DisorderGERD w/o esophagitis 0 8 Jose Caceres [address], [address], [place], [place], [address] , [place]. [phone] Referring Provider: Hansel Oneill [address], [place], [place], [address]. tel:[phone] OFFICE/OUTPA TIENT VISIT, [facility], [address], [place], [place], [address], [place] tel:[phone] [facility] anxiety1 (chief complaint) abdominal pain1 (chief complaint) Abdominal painGeneralized Anxiety Disorder 3 8 Jose Caceres [address], [place], [place], [address] , [place]. [phone] Referring Provider: Hansel Oneill [address], [place], [place], [address]. tel:[phone] OFFICE/OUTPA TIENT VISIT, [facility], [address], [place], [place], [address], [place] tel:[phone] [facility] abd pain1 (chief complaint) pelvic pain1 (chief complaint) anxiety1 (chief complaint) Abdominal painPelvic painGeneralized Anxiety Disorder 8 Jose Caceres [address], [place], [place], [address] , [place]. [phone] Referring Provider: Hansel Oni[address], [place], [place], [address]. tel:[phone] OFFICE/OUTPA TIENT VISIT, [facility], [address], [place], [place], [address], [place] tel:[phone] [facility] HLP (chief complaint) anxiety1 (chief complaint) ADD (chief complaint) sleep (chief complaint) FatigueHyperlipidem iaGeneralized Anxiety DisorderAttention and concentration deficit 8 Jose Ferro. [address], [place], [place], [address] , [place]. tel:[phone] Referring Provider: Hansel Oneill [address], [place], [place], [address]. tel:[phone] PREV VISIT, EST, AGE 18-39 [facility], [address], [place], [place], [address], [place] tel:[phone] [facility] Medicine PHysical (chief complaint) Body mass index (BMI) 31.0-31.9, adultEncounter for general adult medical exam w abnormal findingsAbnormal weight gainHyperlipidemiaF atigueAttention and concentration deficit Apr-2 6-201 8 Jose Ferro. [address], [place], [place], [address] , [place]. tel:[phone] Referring Provider: Hansel Oneill [address], [place], [place], [address]. tel:[phone] OFFICE/OUTPA TIENT VISIT, EST [facility], [address], [place], [place], [address], [place] [phone] [facility] anxiety1 (chief complaint) Generalized Anxiety DisorderDepression Jan-1 0- 7 Jose Ferro. [address], [place], [place], [address] , [place]. tel:[phone] Referring Provider: Hnasel Oneill [address], [place], [place], [address]. tel:[phone] PREV VISIT, EST, AGE 18-39 [facility], [address], [place], [place], [address], [place] [phone] [facility] PHysical (chief complaint) Encounter for general adult medical exam w abnormal findingsDepressionG eneralized Anxiety DisorderLeukorrhea Dec-0 7-201 7 Jose Ferro. [address], [place], [place], [address] , [place]. tel:[phone] Referring Provider: Hansel Oneill [address], [place], [place], [address]. tel:[phone] PREV VISIT, NEW, AGE 18-39 [facility], [address], [place], [place], [address], [place] tel:[phone] [facility] Medicine Physical (chief complaint) Routine Medical ExamRoutine Medical Exam 0201 4 Jose Ferro. [address], [place], [place], [address] , [place]. tel:[phone] Family History Family Member Type Diagnosis Age At Onset Mother Problem (finding) Alive and well Brother Problem (finding) Alive and well Father Problem (finding) Alive and well Mother Problem (finding) Thyroid disorder Payers Payer name Insurance type Covered republican ID Authoriza tion(s) No Information Social History [...] ordered Referral Referred To: [facility] [address] [facility] [address] [place] [address], [phone] Ordered: Referrals: [facility]. Evaluate and treat [...] she had panic attacks. Pt transfer to [facility] ER and had normal EKG, and she [...] any radiculopathy symptoms. 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 [...] pain during her period. Pt never seen jewel flat surfacer. Pt has not done pelvic ultrasound yet. [...]
--- OUTSIDE RECORDS SUMMARY | 2025-02-17 15:50 | XMS_ITS | CONTINUITY OF CARE DOCUMENT ---
Author Name justin anderson Address Unknown Organization [facility] Address [address] [facility] [address] [place] [address] Phone [phone] Care Team Providers Care Grout Machine Tender Name Role Phone Oswald ROSS, Kavita Unavailable COURTNEY ROSS, NADIR Unavailable [phone] NADIR VALDEZ MD Unavailable [phone] PROBLEMS Condition Status Date Provider Notes Screening active Kavita Akers MD Substernal chest pain active Kavita Akers MD Shortness of breath (SOB) active Kavita goode MD Tachycardia active Kavita Akers MD Syncope active Kavita Akers MD ENCOUNTERS Date Type Provider Location Encounter Diag nosis - In-person encounter Office Visit Kavita Akers MD [place] [facility] - In-person encounter Office Visit Kavita Akers MD [place] [facility] ScreeningSubsternal chest painShortness of breath (SOB)TachycardiaSyncope [...] ra Conde height E&M 64 [in_i] Kendy Jupiter Body Mass Index (Ratio) 26.26 kg/m2 Hina [...] Policy type / Coverage type Renea red republican ID [place] MEDICAID Medicaid [id number] ADVANCE DIRECTIVES Name Date DISCUSSED - NO DECISION MADE TREATMENT PLAN Date Name Performer [id number],C, N o further episodes of syncope. Nica Teodoro [id number],C, E cho showed normal EF at 60% and no wall motion or valvular abnormalities. Nica Teodoro [id number],C, R esults of PFTs pending. No SOB today Nica Teodoro [id number],C, H olter monitor showed junctional rhythm and narrow complex tachycardia, sinus vs. atrial tachycardia with occasional PVC. Will start her on Cardizem 30 mg once a day. No further episodes of dizziness or syncope. Nica Valerio [id number],C, T he pt denied episodes of passing out but also says as she moves around at home she falls. Kavita Akers MD [id number],C, T he etiology is unclear she was noted to be SOB while talking. We will get a PFT done. Kavita Akers MD [id number],N, H istory of rapid heart rate with dizzness and fainting and possible syncope. Today she is in sinus rhtyhm the EKG does not show any signifcant abnormality we will get a Telecentry monitor to rule out any signifcant arrthymia. Kavita Akers MD [id number],N,W e will get the information from ER. [...] Monitor - Telemetry (Mobile Cardiac) DLCO - 51793 FRC - 14934 FVC - 13452 Complete Echo HISTORY OF PROCEDURES Procedure Date Procedure Name Provider Procedure Notes S tatus EKG Kavita Akers MD complet ed Spirometry Kavita Akers MD complet ed FVC / MVV with bronchodilator - 20670 Kavita Akers MD completed FRC - 77902 Kavita Akers MD comple nithin SpO2 w/o 6min walk/titration Kavita Akers MD completed SVC - 64576 Kavita Akers MD comple nithin DLCO - 31728 Kavita Akers MD compl eted EKG Kavita Akers MD complet ed
== END 2025-02-17 15:27 | disposition home or self-care (01) ==
PROVIDERS: Emergency Provider Nurse Practitioner Family
DX: H66.92 Otitis media, unspecified, left ear (principal); F17.210 Nicotine dependence, cigarettes, uncomplicated
CPT/HCPCS: 99213; G0463

== ENCOUNTER 2025-09-02 15:14 | Emergency (ER) | payer SELFPAY ==
[2025-09-02 15:20] VITALS: BP 126/71; PULSE 80; RESP 18; TEMP 36.5; O2SAT 99
--- NOTE | 2025-09-02 15:23 | ED.URI ---
HPI - URI/Sore Throat General Chief Complaint: Upper Respiratory Infection Stated Complaint: Chest Congestion/Sore Throat Time Seen by Provider: 09/02/25 15:24 Source: patient, RN notes reviewed and old records reviewed Mode of arrival: ambulatory Limitations: no limitations History of Present Illness HPI Narrative: 30 year old female who presents to [facility] care with complaints of productive cough, sore throat, nasal congestion and body aches for the past 2 days. Patient reports that she has been taking Excedrin and DayQuil for her symptoms wihout improvement.Patient denies any shortness of breath with no tachypnea noted, SAO2 99% on room air. MD elicited complaint: cough (productive cough), sore throat and other (chest congestion, nasal congestion, body aches) Onset (ago): day(s) (2) Consistency: constant Pain scale (0-10): 4 Description of mucous: clear Able to tolerate fluids by mouth: Yes Exacerbating factors: swallowing Treatments prior to arrival: other (Excedrin and DayQuil) Related Data Home Medications ?Medication ?Instructions ?Recorded ?Confirmed ?Last Taken ?Type diazepam 5 mg tablet 5 mg PO DAILY 03/30/22 05/19/23 Unknown History sertraline 100 mg tablet 100 mg PO DAILY 01/09/25 Unknown History lurasidone .ROUTE 02/17/25 02/17/25 History Allergies Allergy/AdvReac Type Severity Reaction Status Date / Time No Known Allergies Allergy Verified 09/02/25 15:24 Review of Systems Review of Systems: CONSTITUTIONAL: Reports malaise, no chills, sweats, or fever. EYES: Denies visual changes, redness, or discharge. ENT: Reports rhinorrhea, congestion, sinus pain, no otalgia and + sore throat. CARDIOVASCULAR: Denies chest pain, palpitations, or edema. RESPIRATORY: Reports productive cough.? Denies dyspnea. GASTROINTESTINAL: Denies abdominal pain, nausea, vomiting, diarrhea SKIN: Denies rash or itching. MUSCULOSKELETAL: Reports myalgia. NEUROLOGIC: Denies headache. All systems reviewed & are unremarkable except as noted in HPI and below PMFSH Past Medical History Medical History (Updated 09/03/25 @ 11:29 by Clarissa Norwood APRN) Urinary tract infection Ear infection Bipolar disorder Anxiety Family History Family History Mother Alcoholism Depression Grandparent Cancer Other Cancer Other Cancer Father Hypertension Depression Sibling Depression Sibling Depression Social History Social History Years smoked: 10 Smoking status: Current every day smoker Tobacco type: cigarettes and e-cigarettes/vaping Alcohol intake: current Substance use: never Occupation/Education: occupation 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 There is no relevant family history pertinent to the presenting complaint Exam Narrative: GENERAL: Well-appearing, well-nourished, and in no acute distress. HEAD: Normocephalic EYES: PERRLA, conjunctivae clear ENT: Nares clear, turbinates edematous and erythematous, clear discharge. Mucous membranes moist. TM pearly guerra with dull light reflex bilaterally; no tragal tenderness. Oropharynx erythematous without lesions. Tonsils not enlarged and without exudate, no drooling, no hoarseness, no trismus, uvula midline.post nasal drainage noted NECK: Supple. No lymphadenopathy CHEST: Clear to auscultation, breath sounds equal. No wheezing, rhonchi, rales, or stridor. No respiratory distress, speaks in full sentences.cough noted SAO2 99% on room air HEART: Regular rate and rhythm. No murmur heard. SKIN: Warm, dry, no rash. NEURO: Alert and oriented x3. PSYCH: Normal mood and affect Course Course Emergency Course: Patient is aware of diagnosis, understands and agrees to treatment plan.? Anticipatory guidance given.? Patient agrees to follow-up as directed and is aware of reasons to seek care at the emergency department. Portions of this record may have been created with voice recognition software Level of Care: Express Care Visit Vital Signs Vital signs: Vital Signs Temperature 36.5 C 09/02/25 15:20 Pulse Rate 80 09/02/25 15:20 Respiratory Rate 18 09/02/25 15:20 Blood Pressure 126/71 09/02/25 15:20 Pulse Oximetry 99 09/02/25 15:20 Oxygen Delivery Room Air 09/02/25 15:20 Temperature 36.5 C 09/02/25 15:20 Pulse Rate 80 09/02/25 15:20 Respiratory Rate 18 09/02/25 15:20 Blood Pressure 126/71 09/02/25 15:20 Pulse Oximetry 99 09/02/25 15:20 Oxygen Delivery Room Air 09/02/25 15:20 Reviewed MDM - URI/Sore Throat MDM Narrative Medical decision making narrative: Differential diagnosis considered: Kahn virus, strep pharyngitis, allergic rhinitis, upper respiratory tract infection, sinusitis, rhinosinusitis, nasopharyngitis. viral pharyngitis, otitis media, otitis externa, pneumonia, bronchitis, viral cough syndrome, viral syndrome, and influenza.? Exam findings show no acute concerns or changes; patient is non-toxic appearing and is in no distress.? Patient is appropriate for outpatient treatment and follow-up. Differential Diagnosis Differential diagnosis: Likely upper respiratory infection, viral infection, pharyngitis and other (strep pharyngitis) Medical Records Attestation: I reviewed the patient's medical records. Lab Data Attestation: I reviewed the patient's lab results. Lab results narrative: strep screen negative, culture sent, COVID antigen negative, Influenza A&B negative Labs: Lab Results 09/02/25 Range/Units 15:45 POC Influenza A Ag Negative (Negative) POC Influenza B Ag Negative (Negative) POC SARS CoV-2 Ag Negative (Negative) POC Grp A Strep Screen Negative (Negative) reviewed Critical Care Time Critical Care Time Critical Care Time: No Discharge Plan Discharge Clinical Impression: Upper respiratory infection Qualifiers: URI type: unspecified URI Qualified Code(s): J06.9 - Acute upper respiratory infection, unspecified Pharyngitis Qualifiers: Pharyngitis/tonsillitis etiology: unspecified etiology Qualified Code(s): J02.9 - Acute pharyngitis, unspecified Patient Disposition: Home Condition: Stable Instructions: Antibiotic Form, Pharyngitis (ED), Upper Respiratory Infection (ED) Additional Instructions: Increase fluids especially juices and water Tdxe-ryv-dltshiu cough and cold medicine of your choice for your symptoms Medrol dose pack take as ordered Zyrtec, Claritin or Delmy daily Flonase nasal spray use as prescribed heat to the face 20-30 minutes 4-6 times a day for pain Salt water gargles, throat lozenges or throat sprays as desired If your symptoms persist, change or worsen significantly before you can contact your personal physician then please, without delay, go to the emergency department for further evaluation. Follow-up with PCP in 7-10 days or sooner if needed Your strep test today was negative. A throat culture will be sent to the laboratory for further testing. IF the test is positive, you will receive a phone call within 48 hours and an appropriate antibiotic will be initiated at that time. Patient Language: Bahraini Prescriptions: New fluticasone propionate [Flonase Allergy Relief] 50 mcg/actuation spray,suspension 1 spray intranasal DAILY Qty: 16 0RF Rx Instructions: administer into each nostril methylprednisolone [Medrol (Kun)] 4 mg tablets,dose pack See Rx Instructions .ROUTE .COMPLEX Qty: 21 0RF Rx Instructions: orally per package directions No Action sertraline 100 mg tablet 100 mg PO DAILY lurasidone [Latuda] .ROUTE diazepam 5 mg tablet 5 mg PO DAILY Follow-up/Referrals: UNKNOWN,DOCTOR [Primary Care Provider] Stand Alone Forms: Work/School Release IP Time of Disposition: 15:51 Quality Trinity Coma Scale Eyes: Open Verbal: Oriented and Alert Motor: Follows Commands Radha Coma Total Score: 15
[2025-09-02 15:47] LABS: EDCOVIDSCREEN Negative (Negative); EDINFLUASCREEN Negative (Negative); EDINFLUBSCREEN Negative (Negative); EDSTREPNEGPOS1 Negative (Negative)
== END 2025-09-02 16:08 | disposition home or self-care (01) ==
PROVIDERS: Emergency Provider Registered Nurse
DX: J06.9 Acute upper respiratory infection, unspecified (principal); J02.9 Acute pharyngitis, unspecified; Z20.822 Contact with and (suspected) exposure to COVID-19; F17.210 Nicotine dependence, cigarettes, uncomplicated; F17.290 Nicotine dependence, other tobacco product, uncomplicated; F41.9 Anxiety disorder, unspecified; F31.9 Bipolar disorder, unspecified
CPT/HCPCS: 87081; 87426; 87804; 87880; 99213; G0463